=== PATIENT | female | born 1940 | race Caucasian/White ===

== ENCOUNTER → 2018-02-03 | Outpatient (CLI) | payer MEDICARE ==
[~2018-02-03] MED LIST: ASPIR 8181 MG PO; ASTEPRO205.5 MCG/; CALCIUM 600 +1 EAC2 PO; CALCIUM 600 +1 EAC9 PO; COMBIVENT RESPIM4 GM; CRANBERRY TABL1 EACH PO; DOCUSATE SODIU100 MG PO; FENOFIBRATE134 MG PO; FLONASE16 GM; FLOVENT HFA12 G1 INH; GUAIFENESIN400 MG PO; HALOBETASOL PRO15 G1 TOP; LEVOCETIRIZINE D5 MG PO; LIDEX TOP; MAGNESIUM250 M1 PO; MELOXICAM7.5 MG PO; METOPROLOL SUCC50 MG PO; MONTELUKAST SOD10 MG PO; MULTIVITAMINS1 EAC7 PO; NEXIUM40 MG PO; OSTEO BI-FLEX1 EAC2 PO; PRISTIQ ER50 MG PO; PROVENTIL HFA6.7 GM INH; RESTASIS1 EACH; TRIBENZOR 40-11 EAC1 PO; TRIBENZOR 40-51 EAC1 PO; TRILIPIX135 MG PO
--- NOTE | 2018-02-03 14:22 | Diagnostic Imaging Report ---
PROCEDURE:X-RAY ABDOMEN - KUB COMPARISON:KUB dated 04/27/15 INDICATIONS:UTI FINDINGS: There is a non-obstructed bowel-gas pattern. 3 mm calcification overlying left renal inferior pole shadow. Right upper quadrant surgical clips, likely related to cholecystectomy. There are no acute osseous abnormalities. Advanced degenerative changes of the lumbar spine along with minimal scoliosis. Unchanged numerous pelvic phleboliths. The lung bases are clear. CONCLUSION: Questionable 3 mm left renal inferior pole calculus. Nonobstructive bowel gas pattern. Dictated by: Jacky Barber M.D. on 02/03/2018 at 14:27 Electronically approved by: Jacky Barber M.D. on 02/03/2018 at 14:27
--- NOTE | 2018-02-03 14:36 | Diagnostic Imaging Report ---
EXAM: Renal Ultrasound INDICATION: \S\URINARY TRACT INFECTION / RENAL CYST COMPARISON: Renal ultrasound dated 04/27/2015 TECHNIQUE: Transverse and longitudinal images of the kidneys and bladder were obtained. FINDINGS: Right Kidney: Size: 12.1 cm Echogenicity: Normal Parenchymal thickness: Normal Collecting system: No hydronephrosis Stones: None Cyst/Mass: 2.7 x 2.4 x 2.6 cm midpole lesion contains soft tissue component without internal flow on color Doppler. There are multiple right renal cysts, the largest in the inferior pole measuring 2.7 cm Left Kidney: Size: 12.8 cm Echogenicity: Normal Parenchymal thickness: Normal Collecting system: No hydronephrosis Stones: None Cyst/Mass: 6.1 x 4.7 x 5.3 cm inferior pole cyst, previously 5.2 x 4.3 x 6 cm. There is another mid to inferior pole cyst measuring 2.9 x 2 x 2.8 cm cyst. Bladder: Unremarkable. Bilateral ureteral jets were seen. IMPRESSION: Bilateral renal cysts, slightly increased in size when compared to prior ultrasound dated 04/27/2015. 2.7 cm right renal midpole cystic/solid lesion is indeterminate. Recommend further evaluation with renal mass protocol CT or MRI. Signed by: Dr. Jacky Barber MD on 02/03/2018 2:32 PM
== END ==
LOC: US 12:55
PROVIDERS: ATTEND Urology
DX: N39.0 Urinary tract infection, site not specified (principal); N20.0 Calculus of kidney; N28.1 Cyst of kidney, acquired
CPT/HCPCS: 74018; 76770

== ENCOUNTER 2018-07-15 12:34 | Inpatient (IN) | payer MEDICARE, OTHER ==
[~2018-07-15] VITALS: Ht 167.6 cm; Wt 80.3 kg
--- OUTSIDE RECORDS SUMMARY | 2018-07-15 12:37 | XMS REPORT ---
[facility] Address Unknown Phone Unavailable Care Team Providers Care Store Merchandiser Name Role Phone GEOVANNA REECE Unavailable Unavailable Problems This patient has no known problems. Allergies, Adverse Reactions, Alerts This patient has no known allergies or adverse reactions. Medications This patient has no known medications. Results Test Description Test Time Test Comments Text Results Atomic Results Result Comments ABDOMEN-1VIEW (KUB) 2018-02-03 14:27:00 [place] [address] Patient Name: MAINE CENTENO MR #: [id number] : 1940 Age/Sex: 77/F Req #: [id number] Adm Physician: Ordered by: GEOVANNA REECE MD Report #: [id number] Location: US Room/Bed: Procedure: [id number] DX/ABDOMEN-1VIEW (KUB) Exam Date: 02/03/18 Exam Time: 1325 REPORT STATUS: Signed PROCEDURE: X-RAY ABDOMEN - KUB COMPARISON: KUB dated 04/27/15 INDICATIONS: UTI FINDINGS: There is a non-obstructed bowel- gas pattern. 3 mm calcification overlying left renal inferior pole shadow. Right upper quadrant surgical clips, likely related to cholecystectomy. There are no acute osseous abnormalities. Advanced degenerative changes of the lumbar spine along with minimal scoliosis. Unchanged numerous pelvic phleboliths. The lung bases are clear. CONCLUSION: Questionable 3 mm left renal inferior pole calculus. Nonobstructive bowel gas pattern. Dictated by: Jacky Barber M.D. on 02/03/2018 at 14:27 Electronically approved by: Jacky Barber M.D. on 02/03/2018 at 14:27 Dictated By: JACYK BARBER MD 26 Transcribed By: DYLAN on 02/03/181426 COPY TO: GEOVANNA REECE MD RENAL RETROPERITONEAL COMP 2018-02-03 14:25:00 [place] [address] Patient Name: MAINE CENTENO MR #: [id number] : 1940 Age/Sex: 77/F Req #: [id number] Adm Physician: Ordered by: GEOVANNA REECE MD Report #: [id number] Location: US Room/Bed: Procedure: [id number] US/US RENAL RETROPERITONEAL COMP Exam Date: Exam Time: REPORT STATUS: Signed EXAM: Renal Ultrasound INDICATION: COMPARISON: Renal ultrasound dated 04/27/2015 TECHNIQUE: Transverse and longitudinal images of the kidneys and bladder were obtained. FINDINGS: Right Kidney: S ize: 12.1 cm Echogenicity: Normal Parenchymal thickness: Normal Collecting system: No hydronephrosis Stones: None Cyst/Mass: 2.7 x 2.4 x 2.6 cm midpole lesion contains soft tissue component without internal flow on color Doppler. There are multiple right renal cysts, the largest in the inferior pole measuring 2.7 cm Left Kidney: Size: 12.8 cm Echogenicity: Normal Parenchymal thickness: Normal Collecting system: No hydronephrosis Stones: None Cyst/Mass: 6.1 x 4.7 x 5.3 cm inferior pole cyst, previously 5.2 x 4.3 x 6 cm. There is another mid to inferior pole cyst measuring 2.9 x 2 x 2.8 cm cyst. Bladder: Unremarkable. Bilateral ureteral jets were seen. IMPRESSION: Bilateral renal cysts, slightly increased in size when compared to prior ultrasound dated 04/27/2015. 2.7 cm right renal midpole cystic/solid lesion is indeterminate. Recommend further evaluation with renal mass protocol CT or MRI. Signed by: Dr. Jacky Barber MD on 02/03/2018 2:32 PM Dictated By: JACKY BARBER MD 1432 Transcribed By: RADHA on 02/03/18 1432 COPY TO: GEOVANNA REECE MD
--- OUTSIDE RECORDS SUMMARY | 2018-07-15 12:37 | XMS REPORT | Summary of Care ---
Author Author JOSÉ MIGUEL Pickens, MARLENE Organization Unknown Address Unknown Phone Unavailable Care Team Providers Care Concession Stand Attendant Name Role Phone TIFFANIE Pickens, ROBERT Unavailable Unavailable JOSÉ MIGUEL Pickens, MARLENE Unavailable Unavailable YEH D.O., FLORENCE-JOSIE Unavailable Unavailable ASIF N.P., SURI Unavailable Unavailable OBONYANO N.P., KAELA Unavailable Unavailable TIFFANIE BEEBE UT, ROBERT Bernard Unavailable Unavailable EUGENIO Pickens, OPAL Unavailable Unavailable Unavailable Unavailable Functional Status Name Dates Details Functional status health issues are not documented Status: Name Dates Details Cognitive status health issues are not documented Status: Problems Name Dates Details Knee pain (719.46, M25.569) Status: Active Intention tremor (333.1, G25.2) Status: Active Subconjunctival hemorrhage (372.72, H11.30) Status: Active Recurrent UTI (599.0, N39.0) Status: Active Vertigo (780.4, R42) Status: Active Neck ache (723.1, M54.2) Status: Active Anal fissure (565.0, K60.2) Status: Active Perineal lump (625.8, R22.9) Status: Active Perineal hematoma (674.30, S30.23XA) Status: Active Vitamin D deficiency disease (268.9, E55.9) Status: Active terminal operator current use of non-steroidal anti-inflammatories (NSAID) (V58.64, Z79.1) Status: Active History of hyperlipidemia (V12.29, Z86.39) Status: Active Stomatitis (528.00, K12.1) Status: Active Right shoulder tendinitis (726.10, M75.81) Status: Active Acute neck pain (723.1, M54.2) Status: Active Umbilical hernia (553.1, K42.9) Status: Active Lumbar degenerative disc disease (722.52, M51.36) Status: Active Allergic rhinitis (477.9, J30.9) Status: Active History of osteoarthritis (V13.4, Z87.39) Status: Active History of psoriasis (V13.3, Z87.2) Status: Active Elevated transaminase level (790.4, R74.0) Status: Active Fatty liver (571.8, K76.0) Status: Active Depression screening (V79.0, Z13.31) Status: Active Screening for osteoporosis (V82.81, Z13.820) Status: Active Edema (782.3, R60.9) Status: Active Osteopenia (733.90, M85.80) Status: Active Lumbar spondylosis (721.3, M47.816) Status: Active Depression, acute (296.20, F32.9) Status: Active Elderly person living alone (V60.3, Z60.2) Status: Active Asthma (493.90, J45.909) Status: Active Stress (V62.89, F43.9) Status: Active Right foot pain (729.5, M79.671) Status: Active Cramp in lower leg (729.82, R25.2) Status: Active Hemorrhoids, internal (455.0, K64.8) Status: Active GERD without esophagitis (530.81, K21.9) Status: Active Persistent dry cough (786.2, R05) Status: Active Dry eye syndrome (375.15, H04.129) Status: Active Back muscle spasm (724.8, M62.830) Status: Active Back pain (724.5, M54.9) Status: Active 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, M15.9) Status: Active Chronic pain of left knee (719.46, M25.562) Status: Active Chronic right shoulder pain (719.41, M25.511) Status: Active Low back pain (724.2, M54.5) Status: Active Balance problem (781.99, R26.89) Status: Active Right upper quadrant abdominal pain (789.01, R10.11) Status: Active Depression, major, single episode, 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, 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 IBS (irritable bowel syndrome) (564.1, K58.9) Status: Active Medicare annual wellness visit, subsequent (V70.0, Z00.00) Status: Active Advance directive discussed with patient (V65.49, Z71.89) Status: Active Breast cancer screening (V76.10, Z12.31) Status: Active Hypertension (401.9, I10) Status: Active Anxiety and depression (300.00, F41.9) Status: Active At high risk for falls (V15.88, Z91.81) Status: Active Encounter for mini-mental status examination Status: Active Irritable bowel syndrome with both constipation and diarrhea (564.1, K58.2) Status: Active 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 * Start : 05-Oct-2015 Active Fenofibric Acid 135 MG Oral Capsule Delayed Release TAKE ONE CAPSULE BY MOUTH DAILY * Quantity: 90 Refills: 1 ROBERT MORENO M.D. * Start : 25-Jul-2017 Active Dqorqptjpv-Kyivsxxhse-QLZV 40-10-25 MG Oral Tablet TAKE 1 TABLET DAILY * Quantity: 90 Refills: 1 ROBERT MORENO M.D. * Start : 23-Nov-2015 Active Metoprolol Succinate ER 50 MG Oral Tablet Extended Release 24 Hour TAKE 1 TABLET BY MOUTH EVERY DAY * Quantity: 90 Refills: 1 ROBERT MROENO M.D. * Start : 22-Apr-2018 Active Restasis 0.05 % Ophthalmic Emulsion INSTILL 1 DROP IN EACH EYE TWICE DAILY. * Refills: 0 R.N. Active Levocetirizine Dihydrochloride 5 MG Oral Tablet TAKE 1 TABLET DAILY. * Quantity: 1 Refills: 1 R.N. Active Sdiso-Vy-Lfnh TABS TAKE 1 TABLET DAILY * Refills: 0 R.N. Active DiphenhydrAMINE HCl - 25 MG Oral Tablet TAKE 1-2 TABLETS AT NIGHT NEEDED * Refills: 0 R.N. Active Icy Hot 5 % PADS APPLY DIRECTED. * Refills: 0 R.N. * Start : 01-Feb-2015 Active Docusate Sodium 100 MG Oral Capsule TAKE 1 CAPSULE DAILY PRN * Refills: 0 R.N. * Start : 01-Feb-2015 Active Multiple Vitamins Oral Tablet TAKE 1 TABLET DAILY. * Refills: 0 R.N. * Start : 01-Feb-2015 Active Acetaminophen ER 650 MG Oral Tablet Extended Release TAKE 1 TABLET 3-4 TIMES DAILY. * Refills: 0 R.N. * Start : 01-Feb-2015 Active Vitamin B Complex Oral Tablet TAKE 1 TABLET DAILY. * Refills: 0 R.N. * Start : 01-Feb-2015 Active Calcium 600 + D 600-200 MG-UNIT Oral Tablet TAKE 1 TABLET DAILY. * Refills: 0 R.N. * Start : 01-Feb-2015 Active Celecoxib 100 MG Oral Capsule TAKE 1 CAPSULE TWICE DAILY PRN joint pain * Quantity: 90 Refills: 1 MARLENE LAYTON M.D. * Start : 01-Feb-2015 Active Halobetasol Propionate 0.05 % External Ointment APPLY AND GENTLY MASSAGE INTO AFFECTED AREA(S) TWICE DAILY. * Refills: 0 R.N. Active Clobetasol Propionate 0.05 % External Solution APPLY AND GENTLY MASSAGE INTO AFFECTED AREA(S) TWICE DAILY. * Refills: 0 R.N. Active Rollator MISC Walker with 4 wheels and seat attachment-use as directed * Quantity: 1 Refills: 0 YEH D.O.IZABELA * Start : 08-Mar-2015 Active Rollator MISC USE DIRECTED. * Quantity: 1 Refills: 0 YEH D.O., IZABELA * Start : 08-Mar-2015 Active ProAir HFA 108 (90 Base) MCG/ACT Inhalation Aerosol Solution INHALE 2 PUFFS EVERY 4 HOURS * Quantity: 3 Refills: 1 ROBERT MORENO M.D. 8.5 GM Inhaler Loratadine TABS TAKE 1 TABLET DAILY NEEDED. * Refills: 0 R.N. Active Montelukast Sodium 10 MG Oral Tablet TAKE 1 TABLET DAILY * Refills: 0 R.N. Active Nitrofurantoin Monohyd Macro 100 MG Oral Capsule TAKE 1 CAPSULE DAILY * Refills: 0 R.N. Active Acidophilus CAPS TAKE 1 CAPSULE DAILY * Refills: 0 R.N. Active Nasonex 50 MCG/ACT Nasal Suspension USE 1 TO 2 SPRAYS IN EACH NOSTRIL ONCE A DAY * Quantity: 17 Refills: 1 R.N. Active Super B Complex Maxi TABS TAKE 1 TABLET DAILY. * Refills: 0 R.N. Active Chlorthalidone 25 MG Oral Tablet take 1/2 tablet by mouth daily * Quantity: 45 Refills: 1 ROBERT MORENO M.D. * Start : 16-Jul-2016 Active Potassium Chloride ER 10 MEQ Oral Capsule Extended Release TAKE 1 CAPSULE DAILY PRN * Quantity: 90 Refills: 1 ROBERT MORENO M.D. * Start : 10-Aug-2017 Active Cholestyramine 4 GM Oral Packet MIX 1 PACKET WITH 2 TO 6 OUNCES OF NONCARBONATED BEVERAGE AND DRINK ONCE DAILY * Quantity: 60 Refills: 1 ASIF N.P. SURI Active Enbrel SureClick 50 MG/ML Subcutaneous Solution Auto-injector Inject 50mg SQ once a week * Quantity: 4 Refills: 7 MARLENE LAYTON M.D. * Start : 03-Dec-2017 Active 0.98 ML Syringe Combivent Respimat 20-100 MCG/ACT Inhalation Aerosol Solution INHALE 1 PUFF 4 TIMES DAILY (MAXIMUM OF 6 PUFFS IN 24 HOURS) * Refills: 0 R.N. * Start : 31-Dec-2017 Active 4 GM Inhaler Mometasone Furoate 50 MCG/ACT Nasal Suspension USE 2 SPRAYS IN EACH NOSTRIL ONCE DAILY * Refills: 0 R.N. * Start : 31-Dec-2017 Active 17 GM Inhaler Probiotic Oral Capsule USE DIRECTED. * Refills: 0 R.N. * Start : 31-Dec-2017 Active Vitamin D3 2000 UNIT Oral Capsule TAKE 1 CAPSULE DAILY * Refills: 0 R.N. * Start : 31-Dec-2017 Active Choline Fenofibrate 135 MG Oral Capsule Delayed Release TAKE ONE CAPSULE BY MOUTH EVERY DAY * Quantity: 30 Refills: 0 YEH D.O., IZABELA * Start : 24-Jan-2018 Active Cholestyramine 4 GM Oral Packet TAKE 1 PACKET DAILY * Quantity: 30 Refills: 6 OBONYANO N.P., KAELA * Start : 05-Mar-2018 Active Allergies and Adverse Reactions Name Dates Details Ampicillin CAPS (Allergy) Status: Active baclofen (Allergy) Status: Active Cephalexin Monohydrate TABS (Allergy) Status: Active clindamycin (Allergy) Status: Active Clindamycin HCl CAPS (Allergy) Reaction: Diarrhea Status: Active Crestor TABS (Allergy) Status: Active Darvon CAPS (Allergy) Status: Active Deconsal DM CHEW (Allergy) Status: Active Erythromycin Derivatives (Allergy) Status: Active Floxin (Allergy) Status: Active gabapentin (Allergy) Status: Active Iodinated Contrast Media (Allergy) Status: Active Meclizine HCl TABS (Allergy) Status: Active Omnicef (Allergy) Status: Active Pseudoephedrine HCl TABS (Allergy) Status: Active Robaxin (Allergy) Status: Active Shellfish-derived Products (Allergy) Reaction: Vomiting, Diarrhea Status: Active Soma Compound TABS (Allergy) Status: Active Sulfa Drugs (Allergy) Status: Active Tetracyclines (Allergy) Status: Active Past Medical History Name Dates Details History of Anxiety (300.00, F41.9) Status: Resolved History of At high risk for falls (V15.88, Z91.81) Status: Resolved History of back problems Status: Resolved History of diverticulitis of colon (V12.79, Z87.19) Status: Resolved History of Environmental and seasonal allergies (477.8, J30.89) Status: Resolved History of herpes zoster (V12.09, Z86.19) Status: Resolved History of Seasonal allergies (477.9, J30.2) Status: Resolved History of upper respiratory infection (V12.09, Z87.09) Status: Resolved Procedures Procedure Dates Details History of Laminectomy Lumbar Completed History of Tonsillectomy Completed History of Appendectomy Completed History of Hysterectomy Completed History of Lumbar Vertebral Fusion Completed History of Foot Surgery Completed History of Oophorectomy Completed Immunization Name Dates Details Zoster (Zostavax) Comments: Approx 2012 Pneumococcal polysaccharide vaccine, 23 valent Comments: Approx 2012 Influenza on: Mar-2014 Fluzone Quadrivalent 0.5 ML Intramuscular Suspension Lot #: [id number] on: 25-Apr-2015 Prevnar 13 Intramuscular Suspension Lot #: [id number] on: 25-Apr-2015 Fluzone High-Dose SUSP Lot #: [id number] on: 13-Apr-2016 Fluzone High-Dose 0.5 ML Intramuscular Suspension Prefilled Syringe Lot #: [id number] on: 13-May-2017 PPD, tuberculin skin test; purified protein derivative solution, intradermal on: 27-Nov-2017 Family History Name Dates Details Family history of Diabetes (250.00, E11.9) Status: Active Family history of Ovarian cancer (183.0, C56.9) Status: Active Family history of Alzheimer's disease (V17.2, Z82.0) Status: Active Name Dates Details Family history of Alzheimer's disease (V17.2, Z82.0) Status: Active Social History Name Dates Details - Status: Name Dates Details Never smoker Vital Signs Date Test Result Details [id number]-[id number]:56 BP Systolic 147 mm[Hg] Status: Comments: Location: LUE; Position: Sitting BP Diastolic 71 mm[Hg] Status: Comments: Location: LUE; Position: Sitting Weight 186 lb Status: Body Mass Index Calculated 30.02 kg/m2 Status: Body Surface Area Calculated 1.94 m2 Status: Temperature 98.6 f Status: Comments: Method: Oral Heart Rate 71 /min Status: Respiration Rate 17 /min Status: Results Date Description Value Details [id number] [[facility]] CMP W/EGFR GLUCOSE 107 mg/dl (Normal) Range: 65-139 Comments: Non-fasting reference interval UREA NITROGEN (BUN) 19 mg/dl (Normal) Range: 7-25 CREATININE 0.84 mg/dl (Normal) Range: 0.60-0.93 Comments: For patients >49 years of age, the reference limitfor Creatinine is approximately 13% higher for peopleidentified as -Norwegian. eGFR NON- 67 {ML/MIN/1.7} (Normal) Range: > OR=60 eGFR 77 {ML/MIN/1.7} (Normal) Range: > OR=60 BUN/CREATININE RATIO NOT APPLICABLE {CALC} Range: 6-22 SODIUM 141 mmol/L (Normal) Range: 135-146 POTASSIUM 3.7 mmol/L (Normal) Range: 3.5-5.3 CHLORIDE 104 mmol/L (Normal) Range: 98-110 CARBON DIOXIDE 29 mmol/L (Normal) Range: 20-32 CALCIUM 9.3 mg/dl (Normal) Range: 8.6-10.4 PROTEIN, TOTAL 6.5 g/dl (Normal) Range: 6.1-8.1 ALBUMIN 4.1 g/dl (Normal) Range: 3.6-5.1 GLOBULIN 2.4 {G/DL__CALC} (Normal) Range: 1.9-3.7 ALBUMIN/GLOBULIN RATIO 1.7 {CALC} (Normal) Range: 1.0-2.5 BILIRUBIN, TOTAL 0.4 mg/dl (Normal) Range: 0.2-1.2 ALKALINE PHSPHATASE 62 u/l (Normal) Range: 33-130 AST 22 u/l (Normal) Range: 10-35 ALT 21 u/l (Normal) Range: 6-29 [id number]-[id number]:41 [[facility]] SED RATE BY MODIFIED WESTERGREN SED RATE BY MODIFIED WESTERGREN 2 mm/h (Normal) Range: < OR=30 18-[id number]:41 [[facility], [facility]] CBC (INCLUDES DIFF/PLT) WHITE BLOOD CELL COUNT 5.6 {Thousand/u} (Normal) Range: 3.8-10.8 RED BLOOD CELL COUNT 4.65 {Million/uL} (Normal) Range: 3.80-5.10 HEMAGLOBIN 13.8 g/dl (Normal) Range: 11.7-15.5 HEMATOCRIT 41.0 % (Normal) Range: 35.0-45.0 MCV 88.2 fL (Normal) Range: 80.0-100.0 MCH 29.7 pg (Normal) Range: 27.0-33.0 MCHC 33.7 g/dl (Normal) Range: 32.0-36.0 RDW 12.6 % (Normal) Range: 11.0-15.0 PLATELET COUNT 233 {Thousand/u} (Normal) Range: 140-400 MPV 10.9 fL (Normal) Range: 7.5-12.5 ABSOLUTE NEUTROPHILS 2722 {cells/uL} (Normal) Range: 6821-8878 ABSOLUTE LYMPHOCYTES 2106 {cells/uL} (Normal) Range: 850-3900 ABSOLUTE MONOCYTES 521 {cells/uL} (Normal) Range: 200-950 ABSOLUTE EOSINOPHILS 190 {cells/uL} (Normal) Range: 15-500 ABSOLUTE BASOPHILS 62 {cells/uL} (Normal) Range: 0-200 NEUTROPHILS 48.6 % (Normal) LYMPHOCYTES 37.6 % (Normal) MONOCYTES 9.3 % (Normal) EOSINOPHILS 3.4 % (Normal) BASOPHILS 1.1 % (Normal) [id number] [[facility]] C-REACTIVE PROTEIN Comments: REPORT COMMENT:FASTING:NO C-REACTIVE PROTEIN 0.5 mg/L (Normal) Range: <8.0 Plan of Care Name Dates Details Planned Observations Planned Goals not documented Planned Encounters Appointment; LAUREANO MEZA M.D. On: 01-Sep-2018 10:45 Appointment; MARLENE LAYTON M.D. On: 23-Dec-2018 14:00 Interventions Provided Medication Changes* Celecoxib 100 MG Oral Capsule - Renew Discussion/Summary* Dear Ms. CENTENO, * The following studies were unremarkable. I've refilled your meds. * Sincerely, * Dr. Layton Instructions Name Dates Details Instructions not documented Encounters Appointment; MARLENE LAYTON M.D. Encounter Diagnosis: Problem not documented On: 27-Jun-2016 10:30 Appointment; SAUD NEVILLE M.D. Encounter Diagnosis: Problem not documented On: 07-Jul-2016 11:45 Appointment; IZABELA ARVIZU D.O. Encounter Diagnosis: Problem not documented On: 16-Jul-2016 12:30 Appointment; MARLENE LAYTON M.D. Encounter Diagnosis: Problem not documented On: 25-Sep-2016 10:30 Appointment; SRUI ASIF NP Encounter Diagnosis: Problem not documented On: 03-Dec-2016 14:00 Appointment; IZABELA ARVIZU D.O. Encounter Diagnosis: Problem not documented On: 03-Jan-2017 10:30 Appointment; MARLENE LAYTON M.D. Encounter Diagnosis: Problem not documented On: 11-Jan-2017 11:30 Appointment; SURI ASIF NP Encounter Diagnosis: Problem not documented On: 31-Jan-2017 13:30 Appointment; SURI ASIF NP Encounter Diagnosis: Problem not documented On: 15-Feb-2017 14:00 Appointment; MARLENE LAYTON M.D. Encounter Diagnosis: Problem not documented On: 13-May-2017 10:30 Appointment; ROBERT MORENO M.D. Encounter Diagnosis: Problem not documented On: 18-May-2017 12:00 Appointment; ROBERT MORENO M.D. Encounter Diagnosis: Problem not documented On: 10-Aug-2017 11:15 Appointment; ROBERT MORENO M.D. Encounter Diagnosis: Problem not documented On: 19-Aug-2017 11:00 Appointment; ROBERT MORENO M.D. Encounter Diagnosis: Problem not documented On: 27-Nov-2017 12:30 Appointment; MARLENE LAYTON M.D. Encounter Diagnosis: Problem not documented On: 27-Nov-2017 14:00 Appointment; ROBERT MORENO M.D. Encounter Diagnosis: Problem not documented On: 11-Dec-2017 10:00 Appointment; LAUREANO MEZA M.D. Encounter Diagnosis: Problem not documented On: 31-Dec-2017 13:00 Appointment; LETTY BANKS LCSW Encounter Diagnosis: Problem not documented On: 08-Jan-2018 13:00 Appointment; LAUREANO MEZA M.D. Encounter Diagnosis: Problem not documented On: 30-Jan-2018 15:45 Appointment; LETTY BANKS LCSW Encounter Diagnosis: Problem not documented On: 04-Feb-2018 15:00 Appointment; SURI ASIF NP Encounter Diagnosis: Problem not documented On: 13-Feb-2018 18:45 Appointment; ROBERT MORENO M.D. Encounter Diagnosis: Problem not documented On: 25-Feb-2018 10:45 Appointment; LAUREANO MEZA M.D. Encounter Diagnosis: Problem not documented On: 05-Mar-2018 10:15 Appointment; MARLENE LAYTON M.D. Encounter Diagnosis: Problem not documented On: 24-Jun-2018 13:00
--- NOTE | 2018-07-15 13:15 | NUR ---
ER Doc at bedside currently.
--- NOTE | 2018-07-15 13:15 | NUR ---
Pt reports "I haven't taken any of my usual home medications today, including my blood pressure medications."
[2018-07-15 13:44] LABS: BASOPHILS # (AUTO) 0.1 (0.0-0.1); BASOPHILS % 0.6 % (0.0-1.0); EOSINOPHILS # (AUTO) 0.1 (0.0-0.4); EOSINOPHILS % 0.8 % (0.0-6.0); HEMATOCRIT 42.9 % (34.2-44.1); HEMOGLOBIN 14.1 g/dL (12.0-16.0); LYMPHOCYTES # (AUTO) 1.4 (1.0-3.2); LYMPHOCYTES % 15.7 % (18.0-39.1); MEAN CORPUSCULAR HEMOGLOBIN 30.1 pg (28-32); MEAN CORPUSCULAR HGB CONC 32.9 g/dL (31-35); MEAN CORPUSCULAR VOLUME 91.5 fL (81-99); MONOCYTES # (AUTO) 0.6 (0.2-0.8); MONOCYTES % 7.4 % (4.4-11.3); NEUTROPHILS # (AUTO) 6.5 (2.1-6.9); NEUTROPHILS % 74.8 % (38.7-80.0); PLATELET COUNT 169 x10e3/uL (140-360); RED BLOOD COUNT 4.69 x10e6/uL (3.6-5.1); RED CELL DISTRIBUTION WIDTH 13.1 % (11.7-14.4)
[2018-07-15 13:48] LABS: INR 0.96; PARTIAL THROMBOPLASTIN TIME 22.8 seconds (23.8-35.5); PROTHROMBIN TIME 13.7 seconds (11.9-14.5)
[2018-07-15 13:56] LABS: ALANINE AMINOTRANSFERASE 33 IU/L (0-55); ALBUMIN 3.8 g/dL (3.5-5.0); ALBUMIN/GLOBULIN RATIO 1.2 (0.8-2.0); ALKALINE PHOSPHATASE 54 IU/L (40-150); ANION GAP 13.7 mmol/L (8-16); BLOOD UREA NITROGEN 21 mg/dL (7-26); BUN/CREATININE RATIO 24 (6-25); CARBON DIOXIDE 26 mmol/L (22-29); CHLORIDE 106 mmol/L (98-107); CREATINE KINASE 63 IU/L (29-168); CREATININE, SERUM 0.87 mg/dL (0.57-1.11); EST GLOMERULAR FILTRATION RATE > 60 ML/MIN (60-); GLUCOSE 120 mg/dL (74-118); POTASSIUM 3.7 mmol/L (3.5-5.1); SODIUM 142 mmol/L (136-145)
--- NOTE | 2018-07-15 14:47 | Diagnostic Imaging Report ---
Examination: Single AP view of the chest. COMPARISON: None. INDICATION: Shortness of breath DISCUSSION: The lungs are well-inflated. No focal airspace consolidation, pleural effusion, or pneumothorax. Probable calcified granuloma in the right upper lung superimposed over the posterior fifth rib. Cardiomediastinal contour is notable for mild atherosclerotic calcification of the thoracic aorta. No overt pulmonary edema. No acute osseous abnormality. IMPRESSION: 1. No acute cardiopulmonary abnormalities. 2. Probable calcified granuloma in the right upper lung. In the absence of prior chest radiographs for comparison purposes, a short-term follow-up chest radiograph (1-2 months) is suggested to document stability. Signed by: Dr. Jluis Bucio M.D. on 07/15/2018 2:44 PM
[2018-07-15] MEDS ORDERED: METHYLPREDNISOLONE SOD SUCC 125 MG/2ML VIAL IV ONE (15:30)
[2018-07-15] MEDS ORDERED: ENOXAPARIN SODIUM INJ 100 MG/ML SYR SC SCH (15:30)
[2018-07-15] MEDS ORDERED: DIPHENHYDRAMINE HCL INJ 50 MG/ML VIAL IV ONE (15:30)
--- NOTE | 2018-07-15 17:45 | Diagnostic Imaging Report ---
CT chest pulmonary embolism protocol CPT code: 99327 INDICATION: Shortness of breath TECHNIQUE: Thin collimation axial images obtained through the level of the pulmonary arteries with additional imaging through the chest following the uneventful administration of 100 cc of low osmolar, nonionic intravenous contrast. Images reconstructed into coronal and sagittal MIPs for complete evaluation of the tortuous and overlapping pulmonary vascular structures and to reduce patient radiation dose. RADIATION DOSE: Total DLP: 630.8 mGy*cm Estimated effective dose: (DLP x 0.015 x size factor) mSv CTDIvol has been reviewed. It is below the limits set by the Radiation Protocol Committee (RPC). Dose reduction techniques used: Automated exposure control, adjustment of the mAs and/or kVp according to patient size, standardized low-dose protocol, and/or iterative reconstruction technique. COMPARISON: Chest x-ray 1336 hours. FINDINGS: Pulmonary artery: Main pulmonary artery measures 4.1 cm in diameter. There are filling defects in the upper, middle and lower lobe branches of the right and left pulmonary arteries. No filling defects in the main pulmonary artery. Aorta: The thoracic aorta is not aneurysmal. No evidence for dissection. Lymph nodes: No enlarged axillary or supraclavicular lymph nodes . Mediastinal lymph nodes measure up to 10 mm. Left hilar lymphoid tissue is prominent but indistinct. Thyroid: Normal in size without mass in the visualized parenchyma.. Mediastinum: There is mild tracheobronchomalacia. The heart is mildly enlarged. No pericardial effusion. The esophagus is collapsed. Lungs: Diffusely hyperinflated with peripheral linear and groundglass opacities. A 2 mm calcified granuloma is in the lateral right upper lobe. There is passive atelectasis of the posterior basal segment of the right lower lobe secondary to exophytic osteophyte. No large pulmonary infarcts. Pleura: No pleural effusion or pleural based mass.. Abdomen: Decreased attenuation of the liver consistent with steatosis. No hepatic mass. Gallbladder is absent. There is mild fatty atrophy of the pancreas. Visualized portions of the spleen, adrenal glands, and left kidney are unremarkable. Bones: Mild to moderate degenerative changes throughout the spine without compression deformity. A sclerotic, nondestructive lesion in T3 is suggestive of a bone island. Soft tissues: Unremarkable. IMPRESSION: 1. Bilateral pulmonary emboli. No large pulmonary infarcts. Enlarged main pulmonary artery consistent with pulmonary artery hypertension. 2. COPD and tracheobronchomalacia. 3. Steatosis. Signed by: Dr. Elisabeth Meehan MD on 07/15/2018 5:41 PM
[2018-07-15] MEDS ORDERED: PEPPERMINT OIL PO (17:59)
[2018-07-15] MEDS ORDERED: ATENOLOL50 MG PO (18:03)
--- NOTE | 2018-07-15 18:06 | NUR ---
Pt resting comfortably in bed watching tv, appearing to be in no disress. Pt denies pain currently. Pt denies SOB, stating "right now, I don't have shortness of breath when I am lying still."
--- NOTE | 2018-07-15 18:13 | NUR ---
ER doc at bedside to update pt on condition.
[2018-07-15] MEDS ORDERED: HEPARIN 25,000 UNIT/D5W 250ML 250 ML IV SCH (18:45)
--- NOTE | 2018-07-15 19:09 | NUR ---
received bedside report from ANN MARIE Joseph day shift nurse.
[2018-07-15] MEDS ORDERED: ONDANSETRON HCL INJ 2 MG/ML VIAL IV PRN (19:15)
[2018-07-15] MEDS: FAMOTIDINE 20 MG TAB PO SCH (19:22)
[2018-07-15] MEDS: SODIUM CHLORIDE 0.9% 1000ML 1,000 ML IV SCH (19:22)
[2018-07-15] MEDS ORDERED: SODIUM CHLORIDE 0.9% 50ML 50 ML ONE (19:46)
[2018-07-15] MEDS ORDERED: IOPAMIDOL 370 MG/ML 200 ML INFUS..BTL INJ ONE (19:46)
--- OUTSIDE RECORDS SUMMARY | 2018-07-15 19:51 | XMS REPORT | Summary of Care ---
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 * Start : 25-Jul-2017 Active Lsbvldddlb-Ybvfhufaqq-KAYM 40-10-25 MG Oral Tablet TAKE 1 TABLET DAILY * Quantity: 90 Refills: 1 ROBERT MORENO M.D. * Start : 23-Nov-2015 Active Metoprolol Succinate ER 50 MG Oral Tablet Extended Release 24 Hour TAKE 1 TABLET BY MOUTH EVERY DAY * Quantity: 90 Refills: 1 ROBERT MORENO M.D. * Start : 22-Apr-2018 Active Restasis 0.05 % Ophthalmic Emulsion INSTILL 1 DROP IN EACH EYE TWICE DAILY. * Refills: 0 Active Levocetirizine Dihydrochloride 5 MG Oral Tablet TAKE 1 TABLET DAILY. * Quantity: 1 Refills: 1 Active Xgwil-Tr-Mohl TABS TAKE 1 TABLET DAILY * Refills: 0 Active DiphenhydrAMINE HCl - 25 MG Oral Tablet TAKE 1-2 TABLETS AT NIGHT NEEDED * Refills: 0 Active Icy Hot 5 % PADS APPLY DIRECTED. * Refills: 0 * Start : 01-Feb-2015 Active Docusate Sodium 100 MG Oral Capsule TAKE 1 CAPSULE DAILY PRN * Refills: 0 * Start : 01-Feb-2015 Active Multiple Vitamins Oral Tablet TAKE 1 TABLET DAILY. * Refills: 0 * Start : 01-Feb-2015 Active Acetaminophen ER 650 MG Oral Tablet Extended Release TAKE 1 TABLET 3-4 TIMES DAILY. * Refills: 0 * Start : 01-Feb-2015 Active Vitamin B Complex Oral Tablet TAKE 1 TABLET DAILY. * Refills: 0 * Start : 01-Feb-2015 Active Calcium 600 + D 600-200 MG-UNIT Oral Tablet TAKE 1 TABLET DAILY. * Refills: 0 * Start : 01-Feb-2015 Active Celecoxib 100 MG Oral Capsule TAKE 1 CAPSULE TWICE DAILY PRN joint pain * Quantity: 90 Refills: 1 JOSE VALDEZ M.D.MERCYClement * Start : 01-Feb-2015 Active Halobetasol Propionate 0.05 % External Ointment APPLY AND GENTLY MASSAGE INTO AFFECTED AREA(S) TWICE DAILY. * Refills: 0 Active Clobetasol Propionate 0.05 % External Solution APPLY AND GENTLY MASSAGE INTO AFFECTED AREA(S) TWICE DAILY. * Refills: 0 Active Rollator MISC Walker with 4 wheels and seat attachment-use as directed * Quantity: 1 Refills: 0 YEH D.O., IZABELA * Start : 08-Mar-2015 Active Rollator MISC USE DIRECTED. * Quantity: 1 Refills: 0 YEH D.O., IZABELA * Start : 08-Mar-2015 Active ProAir HFA 108 (90 Base) MCG/ACT Inhalation Aerosol Solution INHALE 2 PUFFS EVERY 4 HOURS * Quantity: 3 Refills: 1 ROBERT MORENO M.D. Active 8.5 GM Inhaler Loratadine TABS TAKE 1 TABLET DAILY NEEDED. * Refills: 0 Active Montelukast Sodium 10 MG Oral Tablet TAKE 1 TABLET DAILY * Refills: 0 Active Nitrofurantoin Monohyd Macro 100 MG Oral Capsule TAKE 1 CAPSULE DAILY * Refills: 0 Active Acidophilus CAPS TAKE 1 CAPSULE DAILY * Refills: 0 Active Nasonex 50 MCG/ACT Nasal Suspension USE 1 TO 2 SPRAYS IN EACH NOSTRIL ONCE A DAY * Quantity: 17 Refills: 1 Active Super B Complex Maxi TABS TAKE 1 TABLET DAILY. * Refills: 0 Active Chlorthalidone 25 MG Oral Tablet take [...] DAILY * Quantity: 60 Refills: 1 ASIF N.P., SURI Active Enbrel SureClick 50 MG/ML Subcutaneous Solution Auto-injector Inject 50mg SQ once a week * Quantity: 4 Refills: 7 MARLENE VALDEZ M.D. * Start : 03-Dec-2017 Active 0.98 ML Syringe Combivent Respimat 20-100 MCG/ACT Inhalation Aerosol Solution INHALE 1 PUFF 4 TIMES DAILY (MAXIMUM OF 6 PUFFS IN 24 HOURS) * Refills: 0 * Start : 31-Dec-2017 Active 4 GM Inhaler Mometasone Furoate 50 MCG/ACT Nasal Suspension USE 2 SPRAYS IN EACH NOSTRIL ONCE DAILY * Refills: 0 * Start : 31-Dec-2017 Active 17 GM Inhaler Probiotic Oral Capsule USE DIRECTED. * Refills: 0 * Start : 31-Dec-2017 Active Vitamin D3 2000 UNIT Oral Capsule TAKE 1 CAPSULE DAILY * Refills: 0 * Start : 31-Dec-2017 Active Choline Fenofibrate 135 MG Oral Capsule Delayed Release TAKE ONE CAPSULE BY MOUTH EVERY DAY * Quantity: 30 Refills: 0 YEH D.O.IZABELA * Start : 24-Jan-2018 Active Cholestyramine 4 [...] Quadrivalent 0.5 ML Intramuscular Suspension Lot #: [id number] on: 25-Apr-2015 Prevnar 13 Intramuscular Suspension Lot #: [id number] on: 25-Apr-2015 Fluzone High-Dose SUSP Lot #: [id number] on: 13-Apr-2016 Fluzone High-Dose 0.5 ML Intramuscular Suspension Prefilled Syringe Lot #: [id number] on: 13-May-2017 PPD, tuberculin skin test; purified [...] smoker Vital Signs Date Test Result Details [id number] BP Systolic 147 mm[Hg] Status: Comments: Location: LUE; Position: Sitting BP Diastolic 71 mm[Hg] Status: Comments: Location: LUE; Position: Sitting Weight 186 lb Status: Body Mass Index Calculated 30.02 kg/m2 Status: Body Surface Area Calculated 1.94 m2 Status: Temperature 98.6 f Status: Comments: Method: Oral Heart Rate 71 /min Status: Respiration Rate 17 /min Status: Results Date Description Value Details [id number] [QL] CMP W/EGFR GLUCOSE 107 mg/dl (Normal) Range: 65-139 Comments: Non-fasting reference interval UREA NITROGEN (BUN) 19 mg/dl (Normal) Range: 7-25 CREATININE 0.84 mg/dl (Normal) Range: 0.60-0.93 Comments: For patients >49 years of age, the reference limitfor Creatinine is approximately 13% higher for peopleidentified as -Marshallese. eGFR NON- 67 {ML/MIN/1.7} (Normal) Range: > [...] 10-35 ALT 21 u/l (Normal) Range: 6-29 [id number] [QL] SED RATE BY MODIFIED WESTERGREN SED RATE BY MODIFIED WESTERGREN 2 mm/h (Normal) Range: < OR=30 [id number] [[facility]] CBC (INCLUDES DIFF/PLT) WHITE BLOOD CELL COUNT [...] 7.5-12.5 ABSOLUTE NEUTROPHILS 2722 {cells/uL} (Normal) Range: 7877-3407 ABSOLUTE LYMPHOCYTES 2106 {cells/uL} (Normal) Range: 850-3900 ABSOLUTE MONOCYTES 521 {cells/uL} (Normal) Range: 200-950 ABSOLUTE EOSINOPHILS 190 {cells/uL} (Normal) Range: 15-500 ABSOLUTE BASOPHILS 62 {cells/uL} (Normal) Range: 0-200 NEUTROPHILS 48.6 % (Normal) LYMPHOCYTES 37.6 % (Normal) MONOCYTES 9.3 % (Normal) EOSINOPHILS 3.4 % (Normal) BASOPHILS 1.1 % (Normal) [id number] [[facility]] C-REACTIVE PROTEIN Comments: REPORT COMMENT:FASTING:NO C-REACTIVE PROTEIN 0.5 mg/L (Normal) Range: <8.0 Plan of Care Name Dates Details Planned Observations Planned Goals not documented Planned Encounters Appointment; LAUREANO MEZA M.D. On: 01-Sep-2018 10:45 Appointment; MARLENE VALDEZ M.D. On: 23-Dec-2018 14:00 Instructions Name Dates Details Instructions not documented Encounters Appointment; IZABELA ARVIZU D.O. Encounter Diagnosis: Problem not documented On: 16-Jul-2016 12:30 Appointment; MARLENE VALDEZ M.D. Encounter Diagnosis: Problem not documented On: 25-Sep-2016 10:30 Appointment; SURI ASIF NP Encounter Diagnosis: Problem not documented On: 03-Dec-2016 14:00 Appointment; IZABELA ARVIZU D.O. Encounter Diagnosis: Problem not documented On: 03-Jan-2017 10:30 Appointment; MARLENE VALDEZ M.D. Encounter Diagnosis: Problem not documented On: 11-Jan-2017 11:30 Appointment; SURI ASIF NP Encounter Diagnosis: Problem not documented On: 31-Jan-2017 13:30 Appointment; SURI ASIF NP Encounter Diagnosis: Problem not documented On: 15-Feb-2017 14:00 Appointment; MARLENE VALDEZ M.D. Encounter Diagnosis: Problem not documented On: 13-May-2017 10:30 Appointment; ROBERT MORENO M.D. Encounter Diagnosis: Problem not documented On: 18-May-2017 12:00 Appointment; ROBERT MORENO M.D. Encounter Diagnosis: Problem not documented On: 10-Aug-2017 11:15 Appointment; ROBERT MORENO M.D. Encounter Diagnosis: Problem not documented On: 19-Aug-2017 11:00 Appointment; ROBERT MORENO M.D. Encounter Diagnosis: Problem not documented On: 27-Nov-2017 12:30 Appointment; MARLENE VALDEZ M.D. Encounter Diagnosis: Problem not documented On: [...] not documented On: 05-Mar-2018 10:15 Appointment; MARLENE VALDEZ M.D. Encounter Diagnosis: Problem not documented On: 24-Jun-2018 13:00
[2018-07-15 20:55] VITALS: BP 157/71
--- NOTE | 2018-07-15 21:21 | NUR ---
Heparin gtt started per md orders with Kym Grimaldo RN. Refer to MD paper order in pts paper chart.
[2018-07-15 22:00] VITALS: BP 151/69
[2018-07-15] MEDS: HEPARIN 25,000 UNIT/D5W 250ML 250 ML IV SCH (22:02)
[2018-07-15 23:00] VITALS: BP 137/65
[2018-07-16] VITALS (21 sets, daily range): BP systolic 124–159; BP diastolic 53–101
[2018-07-16] MEDS ORDERED: HEPARIN 25,000 UNIT/D5W 250ML 250 ML IV SCH (04:00)
--- NOTE | 2018-07-16 04:25 | NUR ---
Heparin protocol for PTT 74.9: Therapeutic. Recheck PTT in 6 hours. If continues to be therapeutic, change PTT to daily.
[2018-07-16 04:52] LABS: BASOPHILS % 0.3 % (0.0-1.0); HEMATOCRIT 38.2 % (34.2-44.1); HEMOGLOBIN 12.7 g/dL (12.0-16.0); LYMPHOCYTES # (AUTO) 2.1 (1.0-3.2); LYMPHOCYTES % 19.5 % (18.0-39.1); MEAN CORPUSCULAR HEMOGLOBIN 30.3 pg (28-32); MEAN CORPUSCULAR HGB CONC 33.2 g/dL (31-35); MEAN CORPUSCULAR VOLUME 91.2 fL (81-99); MONOCYTES # (AUTO) 0.9 (0.2-0.8); MONOCYTES % 7.7 % (4.4-11.3); NEUTROPHILS # (AUTO) 7.9 (2.1-6.9); NEUTROPHILS % 71.6 % (38.7-80.0); PLATELET COUNT 168 x10e3/uL (140-360); RED BLOOD COUNT 4.19 x10e6/uL (3.6-5.1); RED CELL DISTRIBUTION WIDTH 13.1 % (11.7-14.4)
[2018-07-16] MEDS: SODIUM CHLORIDE 0.9% 1000ML 1,000 ML IV SCH ×2 (05:03→15:15)
[2018-07-16 05:31] LABS: CREATINE KINASE MB 2.7 ng/mL (0-5.0)
[2018-07-16 06:02] LABS: ANION GAP 15.4 mmol/L (8-16); BLOOD UREA NITROGEN 18 mg/dL (7-26); BUN/CREATININE RATIO 22 (6-25); CALCIUM 9.2 mg/dL (8.4-10.2); CARBON DIOXIDE 21 mmol/L (22-29); CHLORIDE 109 mmol/L (98-107); CREATININE, SERUM 0.82 mg/dL (0.57-1.11); EST GLOMERULAR FILTRATION RATE > 60 ML/MIN (60-); GLUCOSE 125 mg/dL (74-118); POTASSIUM 3.4 mmol/L (3.5-5.1); SODIUM 142 mmol/L (136-145)
[2018-07-16] MEDS: FAMOTIDINE 20 MG TAB PO SCH (07:15)
[2018-07-16] MEDS ORDERED: FAMOTIDINE 20 MG TAB PO SCH (08:00)
[2018-07-16] MEDS ORDERED: ALBUTEROL SULFATE HFA 8GM INHALATION AEROSOL INH SCH (08:45)
[2018-07-16] MEDS ORDERED: MULTIVITAMINS/MINERALS TAB PO SCH (09:00)
[2018-07-16] MEDS: PANTOPRAZOLE SOD 40 MG TABEC PO SCH ×2 (09:23→17:10)
[2018-07-16] MEDS: FLUTICASONE PROPIONATE NASAL SPRAY NS SCH ×2 (10:28→17:10)
[2018-07-16] MEDS: METOPROLOL SUCCINATE 50 MG TAB XL PO SCH (10:29)
[2018-07-16] MEDS: AMLODIPINE BESYLATE 10 MG TAB PO SCH (10:29)
[2018-07-16] MEDS: HYDROCHLOROTHIAZIDE 25 MG TAB PO SCH (10:29)
[2018-07-16] MEDS: LOSARTAN POTASSIUM 25 MG TAB PO SCH (10:29)
[2018-07-16] MEDS: DESVENLAFAXINE SUCCINATE 50 MG TAB.SR.24H PO SCH (10:29)
[2018-07-16] MEDS: OLMESARTAN 20 MG TAB PO SCH (10:29)
--- NOTE | 2018-07-16 10:34 | Consultation ---
DATE OF CONSULTATION: PULMONARY CONSULTATION This is a patient of Dr. Miller, Dr. Koo, and Dr. Herring. This charming, but unfortunate, 78-year-old woman, with a history of progressive dyspnea over 2 days, was unable to walk at all yesterday. Uses a walker. Has been sedentary of late. History of psoriatic arthritis, history of mild asthma for 20 years, diverticular disease, history of chronic back pain which limits her, TIA in 2010. Worked as a schoolteacher. Nonsmoker. No alcohol use. ALLERGIES: HAS MULTIPLE MEDICATION ALLERGIES INCLUDING AMPICILLIN, KEFLEX, CRESTOR, DARVON, FLUCONAZOLE, AZITHROMYCIN, FLOXIN, IODINE, SUDAFED, OMNICEF, ROBAXIN, SHELLFISH, SOMA, SULFA, TETRACYCLINE, GABAPENTIN, CLINDAMYCIN, MECLIZINE, OTEZLA. MANY OF THESE ARE NOT ALLERGIES BUT RATHER SHE HAS SIDE EFFECTS. CRESTOR CAUSES MUSCLE ACHES, AMPICILLIN AND KEFLEX A RASH, IODINE BLISTERS, SUDAFED LOSS OF VISION AND PALPITATIONS. CURRENT MEDICATIONS: Include Enbrel injections, Combivent, mometasone nasal spray, albuterol, Restasis, clobetasol solution, Questran, chlorthalidone, Nexium, Pristiq, fenofibric acid, olmesartan, metoprolol, montelukast, levocetirizine, Celebrex and nitrofurantoin. Well-developed, sprightly, white female in no acute distress, looking her stated age. She has worked as an elementary schoolteacher. Born in [place], [place]. Has had appendectomy, gallbladder and hysterectomy. PHYSICAL EXAMINATION VITALS: Temperature 98, pulse 76, respirations 15, blood pressure 153/71. HEENT: Head is normocephalic and atraumatic. Eyes: The extraocular movements are intact. LUNGS: Clear. HEART: Regular rate and rhythm. ABDOMEN: Nontender. EXTREMITIES: No edema. Psoriatic rash noted. IMPRESSION: Submassive pulmonary embolism. PLAN: Anticoagulation. Long-term anticoagulation may be necessary in view of her sedentary lifestyle. There is no family history to suggest propensity to clotting. Recommend at least 3-month course of anticoagulation though it may be prudent to extend this given her sedentary lifestyle. Thank you for this kind referral. Job#: [id number] MH
[2018-07-16 11:20] LABS: CREATINE KINASE MB 3.2 ng/mL (0-5.0)
[2018-07-16] MEDS: ATENOLOL 50 MG TAB PO SCH (12:01)
[2018-07-16] MEDS: WARFARIN SOD 5 MG TAB PO SCH (17:28)
[2018-07-16] MEDS: MONTELUKAST SODIUM 10 MG TAB PO SCH (20:49)
[2018-07-16] MEDS: HEPARIN 25,000 UNIT/D5W 250ML 250 ML IV SCH (20:51)
[2018-07-17] VITALS (22 sets, daily range): BP systolic 124–162; BP diastolic 52–74
[2018-07-17 05:10] LABS: BASOPHILS # (AUTO) 0.1 (0.0-0.1); BASOPHILS % 0.6 % (0.0-1.0); EOSINOPHILS # (AUTO) 0.2 (0.0-0.4); EOSINOPHILS % 2.8 % (0.0-6.0); HEMATOCRIT 37.2 % (34.2-44.1); HEMOGLOBIN 11.9 g/dL (12.0-16.0); LYMPHOCYTES # (AUTO) 3.5 (1.0-3.2); LYMPHOCYTES % 44.9 % (18.0-39.1); MEAN CORPUSCULAR HEMOGLOBIN 29.8 pg (28-32); MONOCYTES # (AUTO) 0.6 (0.2-0.8); MONOCYTES % 7.5 % (4.4-11.3); NEUTROPHILS # (AUTO) 3.4 (2.1-6.9); NEUTROPHILS % 43.7 % (38.7-80.0); PLATELET COUNT 170 x10e3/uL (140-360); RED CELL DISTRIBUTION WIDTH 13.4 % (11.7-14.4)
[2018-07-17 05:28] LABS: INR 0.99
[2018-07-17 05:29] LABS: PARTIAL THROMBOPLASTIN TIME 54.8 seconds (23.8-35.5)
[2018-07-17 05:43] LABS: ALBUMIN 3.2 g/dL (3.5-5.0); ALBUMIN/GLOBULIN RATIO 1.3 (0.8-2.0); ANION GAP 13.9 mmol/L (8-16); CREATININE, SERUM 0.9 mg/dL (0.57-1.11); POTASSIUM 3.9 mmol/L (3.5-5.1)
--- NOTE | 2018-07-17 07:15 | NUR ---
Patient received awake, alert and Ox4. Respirations are even and unlabored. Denies any pain or discomfort. On Dilaudid CLAMMER pump and tolerating well. Abdominal dressing is dry and intact. Has right and left SUSANNA drains and draining sanguinous fluid of minimal amount to each SUSANNA drain. Denies any nausea or vomiting.
[2018-07-17] MEDS: PANTOPRAZOLE SOD 40 MG TABEC PO SCH ×2 (07:30→16:30)
[2018-07-17] MEDS: FLUTICASONE PROPIONATE NASAL SPRAY NS SCH ×2 (08:50→17:26)
[2018-07-17] MEDS: HYDROCHLOROTHIAZIDE 25 MG TAB PO SCH (09:01)
[2018-07-17] MEDS: DESVENLAFAXINE SUCCINATE 50 MG TAB.SR.24H PO SCH (09:05)
[2018-07-17] MEDS: LOSARTAN POTASSIUM 25 MG TAB PO SCH (09:16)
[2018-07-17] MEDS: AMLODIPINE BESYLATE 10 MG TAB PO SCH (09:16)
[2018-07-17] MEDS: METOPROLOL SUCCINATE 50 MG TAB XL PO SCH (09:17)
[2018-07-17] MEDS: SODIUM CHLORIDE 0.9% 1000ML 1,000 ML IV SCH (10:55)
[2018-07-17] MEDS: ATENOLOL 50 MG TAB PO SCH (11:30)
[2018-07-17] MEDS: HEPARIN 25,000 UNIT/D5W 250ML 250 ML IV SCH (11:40)
[2018-07-17] MEDS ORDERED: SALINE 0.65% NAS SOLN 1 SPRAY BTL PRN (13:00)
--- NOTE | 2018-07-17 14:03 | NUR ---
Nutrition Screen Note RD Recommendation for Physician: -Continue cardiac diet as ordered Plan of Care: RD following, monitoring for tolerance and adequacy Nutrition reason for involvement: RN Consult no reason stated Primary Diagnose(s): Submassive pulmonary embolism PMH: psoriatic arthritis, asthma, diverticular disease, chronic back pain Ht: 66in Wt: 187lb BMI: 30.3kg/m2 IBW: 130lb RD Assessment: (07/17) Chart reviewed. Labs and meds reviewed. 78 yo F, who is admitted for pulmonary embolism. Visited pt in the room. Pt reports good appetite with 75-100% recorded PO intake. No GI complains noted. LBM 07/17. Pt denies any chewing or swallowing difficulty. No recent weight loss reported. Will continue to monitor and follow. Current Diet: cardiac diet Malnutrition Evaluation (07/17) The patient does not meet criteria for a specified degree of malnutrition at this time. Will re-evaluate at follow-up as appropriate. Diet Education Needs Assessment: Diet education not indicated. Nutrition Care Level: low Signed: Feli Portillo, MS, RD, LD
[2018-07-17] MEDS: WARFARIN SOD 5 MG TAB PO SCH (17:30)
[2018-07-17] MEDS: MONTELUKAST SODIUM 10 MG TAB PO SCH (22:07)
--- NOTE | 2018-07-17 23:30 | NUR ---
Report to ANN MARIE Davis
--- NOTE | 2018-07-17 23:45 | NUR ---
Pt transferred to [facility] via Hospital bed, accompanied by 2 RNs. Tele monitor on. Pt was recieved in room by ANN MARIE Davis Addendum: 07/18/18 at 0011 by Mary Holm RN Heparin drip and NS infusing via (L) Hand PIV
--- NOTE | 2018-07-17 23:50 | NUR ---
PT ARRIVING TO UNIT VIA HOSPITAL BED WITH STAFF, NO DISTRESS NOTED, PT ALERT AND ORIENTED, ASSESSMENT COMPLETER, DENIES NEEDS, BED LOCKED AND LOW, IV INFUSING PER ORDER, TELEMETRY NOTED, CALL LIGHT IN REACH, INSTRUCTED TO CALL WITH NEEDS
[2018-07-18] VITALS (7 sets, daily range): BP systolic 129–188; BP diastolic 60–74
--- NOTE | 2018-07-18 05:36 | NUR ---
PT RESTING IN BED WITH CPAP WORN , NO DISTRESS NOTED, CALL LIGHT IN REACH Addendum: 07/18/18 at 0537 by PAGE SUBRAMANIAN RN PT RESTING IN BED WITH EYES CLOSED
[2018-07-18] MEDS: FLUTICASONE PROPIONATE NASAL SPRAY NS SCH ×2 (09:16→16:46)
[2018-07-18] MEDS: SODIUM CHLORIDE 0.9% 1000ML 1,000 ML IV SCH (09:17)
[2018-07-18] MEDS: OLMESARTAN 20 MG TAB PO SCH (09:17)
[2018-07-18] MEDS: AMLODIPINE BESYLATE 10 MG TAB PO SCH (09:17)
[2018-07-18] MEDS: PANTOPRAZOLE SOD 40 MG TABEC PO SCH ×2 (09:17→16:46)
[2018-07-18] MEDS: DESVENLAFAXINE SUCCINATE 50 MG TAB.SR.24H PO SCH (09:17)
[2018-07-18] MEDS: HYDROCHLOROTHIAZIDE 25 MG TAB PO SCH (09:17)
--- NOTE | 2018-07-18 11:47 | NUR ---
RECEIVED ORDER FOR HSE. ADDED SN EVAL AND TREAT. MET W THE PT AT THE BEDSIDE. PT STATES SHE HAS NOT RECEIVED HH IN THE PAST, BUT HER DAUGHTER WORKS FOR A HH AGENCY AND WOULD LIKE FOR ME TO CALL HER TO SEE IF HER COMPANY IS IN NETWORK [employer] It [employer] Check. PROVIDED CHOICE LETTER AND NAMES OF KNOWN HH AGENCIES IN NETWORK [employer] Check. STATES IF HER DTR'S HH IS NOT IN NETWORK ANY ONE IN NETWORK IS OK. CHOICE LETTER WAS SIGNED AND COPY TO CHART AND COPY WILL BE PROVIDED TO THE PT. CALL MADE TO CHRISSY MACIAS; DTR, AT [phone]. NO ANSWER AND VM WAS FULL. WILL F/U.
[2018-07-18] MEDS: METOPROLOL SUCCINATE 50 MG TAB XL PO SCH (12:15)
--- NOTE | 2018-07-18 13:21 | NUR ---
CM ATTEMPTED TO CONTACT DAUGHTERCHRISSY 3 ADDL CALLS, BUT NO ANSWER AND VM WAS FULL. [facility] FOR SN EVAL AND TREAT, PT EVAL AND TREAT FAXED TO [facility] @ [phone] / FAX: [phone]. PER NURSE PT WILL PROBABLY DC HOME SATURDAY OR SATURDAY.
--- NOTE | 2018-07-18 13:52 | NUR ---
Nutrition Screen Note RD Recommendation for Physician: - Continue cardiac diet as ordered Plan of Care: RD following, monitoring for tolerance and adequacy Nutrition reason for involvement: MD consult- diet education Primary Diagnose(s): Submassive pulmonary embolism PMH: psoriatic arthritis, asthma, diverticular disease, chronic back pain Ht: 66in Wt: 187lb BMI: 30.3kg/m2 IBW: 130lb RD Assessment: (07/18). Evaluated pt yesterday. No change in nutrition status. Diet education on vitamin K nutrition therapy has been provided. Will continue to monitor and follow. (07/17) Chart reviewed. Labs and meds reviewed. 78 yo F, who is admitted for pulmonary embolism. Visited pt in the room. Pt reports good appetite with 75-100% recorded PO intake. No GI complains noted. LBM 07/17. Pt denies any chewing or swallowing difficulty. No recent weight loss reported. Will continue to monitor and follow. Current Diet: cardiac diet Malnutrition Evaluation (07/17) The patient does not meet criteria for a specified degree of malnutrition at this time. Will re-evaluate at follow-up as appropriate. Diet Education Needs Assessment: Diet education indicated, pt is agreeable with plan. Learner(s): pt Barriers: none Cultural/Language Modifications: none Readiness: ready Method: handout, explanation Topics: Vitamin K nutrition therapy Understanding/Compliance: Pt understood. All questions have been answered. Nutrition Care Level: low Signed: Feli Portillo, MS, RD, LD
[2018-07-18 14:43] LABS: INR 0.95; PROTHROMBIN TIME 13.5 seconds (11.9-14.5)
[2018-07-18] MEDS: HEPARIN 25,000 UNIT/D5W 250ML 250 ML IV SCH (15:02)
[2018-07-18] MEDS: WARFARIN SOD 5 MG TAB PO SCH (16:46)
--- NOTE | 2018-07-18 19:10 | NUR ---
REPORT RECEIVED FROM OFF GOING NURSE, PT SITTING UP AT BEDSIDE COLORING, NO DISTRESS NOTED, PT ASSISTED TO VOID IN RESTROOM, IV INFUSING PER ORDER, DENIES NEEDS, CALL LIGHT IN REACH, INSTRUCTED TO CALL WITH NEEDS, TELEMETRY NOTED
[2018-07-18] MEDS: MONTELUKAST SODIUM 10 MG TAB PO SCH (21:00)
[2018-07-19] VITALS (8 sets, daily range): BP systolic 143–163; BP diastolic 63–68
[2018-07-19] MEDS: SODIUM CHLORIDE 0.9% 1000ML 1,000 ML IV SCH (02:02)
--- NOTE | 2018-07-19 05:53 | NUR ---
PT RESTING IN BED WITH EYES CLOSED, CPAP WORN, NO DISTRESS NOTED, CALL LIGHT IN REACH, PLANTING MACHINE OPERATOR IN PLACE
[2018-07-19] MEDS: HEPARIN 25,000 UNIT/D5W 250ML 250 ML IV SCH (06:46)
[2018-07-19 07:30] LABS: INR 1.05; PROTHROMBIN TIME 14.6 seconds (11.9-14.5)
--- NOTE | 2018-07-19 09:05 | NUR ---
Pt received resting in bed. Heparin drip at 15ML/hr & NS at 50 ML/hr ongoing. Bleeding & fall precautions maintained. All meds given as ordered. Will monitor
[2018-07-19] MEDS: FLUTICASONE PROPIONATE NASAL SPRAY NS SCH ×2 (09:11→17:33)
[2018-07-19] MEDS: PANTOPRAZOLE SOD 40 MG TABEC PO SCH ×2 (09:11→17:33)
[2018-07-19] MEDS: OLMESARTAN 20 MG TAB PO SCH (09:12)
[2018-07-19] MEDS: METOPROLOL SUCCINATE 50 MG TAB XL PO SCH (09:12)
[2018-07-19] MEDS: DESVENLAFAXINE SUCCINATE 50 MG TAB.SR.24H PO SCH (09:12)
[2018-07-19] MEDS: AMLODIPINE BESYLATE 10 MG TAB PO SCH (09:12)
[2018-07-19] MEDS: HYDROCHLOROTHIAZIDE 25 MG TAB PO SCH (09:12)
[2018-07-19] MEDS ORDERED: WARFARIN SOD 5 MG TAB PO ONE (17:00)
[2018-07-19] MEDS: WARFARIN SOD 5 MG TAB PO SCH (17:33)
--- NOTE | 2018-07-19 19:00 | NUR ---
REPORT RECEIVED FROM OFF GOING NURSE, PT RESTING IN BED ALERT AND ORIENTED, VISITING WITH FAMILY, IV INFUSING PER ORDER, BED LOCKED AND LOW, CALL LIGHT IN REACH, INSTRUCTED TO CALL WITH NEEDS, DENIES NEEDS, AT THIS TIME
[2018-07-19] MEDS: MONTELUKAST SODIUM 10 MG TAB PO SCH (21:00)
[2018-07-20] VITALS (7 sets, daily range): BP systolic 122–161; BP diastolic 59–73
--- NOTE | 2018-07-20 06:54 | NUR ---
PT ALERT AND ORIENTED, ASSISTED TO RESTROOM WITH WALKER, NO DISTRESS NOTED, PT ASSISTED BED, CPAP WORN , BED LOCKED AND LOW, CALL LIGHT IN REACH, TELEMETRY NOTED, INSTRUCTED TO CALL WITH NEEDS, IV INFUSING PER ORDER
[2018-07-20] MEDS: PANTOPRAZOLE SOD 40 MG TABEC PO SCH ×2 (09:05→17:05)
[2018-07-20] MEDS: FLUTICASONE PROPIONATE NASAL SPRAY NS SCH ×2 (09:05→17:05)
[2018-07-20] MEDS: METOPROLOL SUCCINATE 50 MG TAB XL PO SCH (09:06)
[2018-07-20] MEDS: DESVENLAFAXINE SUCCINATE 50 MG TAB.SR.24H PO SCH (09:06)
[2018-07-20] MEDS: AMLODIPINE BESYLATE 10 MG TAB PO SCH (09:06)
[2018-07-20] MEDS: OLMESARTAN 20 MG TAB PO SCH (09:06)
[2018-07-20] MEDS: HYDROCHLOROTHIAZIDE 25 MG TAB PO SCH (09:06)
[2018-07-20 10:24] LABS: INR 1.11; PROTHROMBIN TIME 15.3 seconds (11.9-14.5)
--- NOTE | 2018-07-20 10:57 | NUR ---
PTT LEVEL IS A 71.2 AT THIS TIME WITHIN THERAPEUTIC LEVEL. KEEPING RATE AT 15CC/HR
[2018-07-20] MEDS: HEPARIN 25,000 UNIT/D5W 250ML 250 ML IV SCH (16:24)
[2018-07-20] MEDS: WARFARIN SOD 5 MG TAB PO SCH (17:06)
[2018-07-20] MEDS: BETAMETHASONE DIP AUG 0.05% CRM 15 GM TUBE TOP SCH (18:19)
[2018-07-20] MEDS: MONTELUKAST SODIUM 10 MG TAB PO SCH (20:19)
[2018-07-20] MEDS ORDERED: MAGNESIUM/ALUMINUM/SIMETHICONE 30 ML UDC PO PRN (21:30)
[2018-07-21] VITALS (8 sets, daily range): BP systolic 115–155; BP diastolic 56–67
[2018-07-21 06:27] LABS: INR 1.31; PROTHROMBIN TIME 17.4 seconds (11.9-14.5)
[2018-07-21] MEDS: METOPROLOL SUCCINATE 50 MG TAB XL PO SCH (08:15)
[2018-07-21] MEDS: DESVENLAFAXINE SUCCINATE 50 MG TAB.SR.24H PO SCH (08:15)
[2018-07-21] MEDS: OLMESARTAN 20 MG TAB PO SCH (08:15)
[2018-07-21] MEDS: PANTOPRAZOLE SOD 40 MG TABEC PO SCH ×2 (08:15→16:58)
[2018-07-21] MEDS: AMLODIPINE BESYLATE 10 MG TAB PO SCH (08:15)
[2018-07-21] MEDS: HYDROCHLOROTHIAZIDE 25 MG TAB PO SCH (08:15)
[2018-07-21] MEDS: FLUTICASONE PROPIONATE NASAL SPRAY NS SCH ×2 (08:15→16:58)
--- NOTE | 2018-07-21 08:15 | NUR ---
Pt received resting in bed. All meds given as ordered. Heparin drip ongoing at 1500units per hour. Emotional support given. Fall precautions maintained. Will monitor
[2018-07-21] MEDS: BETAMETHASONE DIP AUG 0.05% CRM 15 GM TUBE TOP SCH ×2 (08:16→16:59)
--- NOTE | 2018-07-21 09:35 | NUR ---
Ptt greater than therapeutic level (86 secs). Heparin drip decreased to 1400units/hr. PTT ordered for 1540. Will follow up
[2018-07-21] MEDS: HEPARIN 25,000 UNIT/D5W 250ML 250 ML IV SCH ×2 (09:40→10:45)
[2018-07-21] MEDS: LORATADINE/PSEUDOEPHEDRINE 24 HR SR TAB PO SCH (12:07)
--- NOTE | 2018-07-21 16:10 | NUR ---
PTT 65.5 secs (therapeutic) will order follow up lab in 6 hours. No bleeding noted. Will monitor
[2018-07-21] MEDS: WARFARIN SOD 5 MG TAB PO SCH (16:58)
--- NOTE | 2018-07-21 19:38 | NUR ---
Received pt in bed awake and alert. No S/S of resp distress. Call light within reach and instructed to call for assistance. Pt verbalized understanding.
[2018-07-21] MEDS: MONTELUKAST SODIUM 10 MG TAB PO SCH (21:32)
[2018-07-22] VITALS (7 sets, daily range): BP systolic 123–146; BP diastolic 56–65
[2018-07-22] MEDS: HEPARIN 25,000 UNIT/D5W 250ML 250 ML IV SCH ×2 (03:53→12:00)
[2018-07-22 05:56] LABS: BASOPHILS # (AUTO) 0.1 (0.0-0.1); BASOPHILS % 0.9 % (0.0-1.0); EOSINOPHILS # (AUTO) 0.2 (0.0-0.4); EOSINOPHILS % 3.4 % (0.0-6.0); HEMATOCRIT 40.1 % (34.2-44.1); LYMPHOCYTES # (AUTO) 1.9 (1.0-3.2); LYMPHOCYTES % 33.8 % (18.0-39.1); MEAN CORPUSCULAR HEMOGLOBIN 29.2 pg (28-32); MEAN CORPUSCULAR HGB CONC 32.4 g/dL (31-35); MEAN CORPUSCULAR VOLUME 90.1 fL (81-99); MONOCYTES # (AUTO) 0.6 (0.2-0.8); MONOCYTES % 11.2 % (4.4-11.3); NEUTROPHILS # (AUTO) 2.8 (2.1-6.9); PLATELET COUNT 203 x10e3/uL (140-360); RED BLOOD COUNT 4.45 x10e6/uL (3.6-5.1); RED CELL DISTRIBUTION WIDTH 13.3 % (11.7-14.4)
[2018-07-22 06:58] LABS: INR 1.31; PROTHROMBIN TIME 17.4 seconds (11.9-14.5)
--- NOTE | 2018-07-22 08:25 | NUR ---
Pt received resting in bed. Heparin drip ongoing at 1400 Units per hour via right forearm IV, first PTT was at 0525. No c/o pain or discomfort noted or voiced. All meds given as ordered. Call bettencourt within reach. Will follow up with PTT at 1130am
[2018-07-22] MEDS: PANTOPRAZOLE SOD 40 MG TABEC PO SCH ×2 (08:26→16:04)
[2018-07-22] MEDS: DESVENLAFAXINE SUCCINATE 50 MG TAB.SR.24H PO SCH (08:26)
[2018-07-22] MEDS: FLUTICASONE PROPIONATE NASAL SPRAY NS SCH ×2 (08:26→16:04)
[2018-07-22] MEDS: OLMESARTAN 20 MG TAB PO SCH (08:26)
[2018-07-22] MEDS: AMLODIPINE BESYLATE 10 MG TAB PO SCH (08:26)
[2018-07-22] MEDS: LORATADINE/PSEUDOEPHEDRINE 24 HR SR TAB PO SCH (08:26)
[2018-07-22] MEDS: HYDROCHLOROTHIAZIDE 25 MG TAB PO SCH (08:26)
[2018-07-22] MEDS: METOPROLOL SUCCINATE 50 MG TAB XL PO SCH (08:27)
[2018-07-22] MEDS: BETAMETHASONE DIP AUG 0.05% CRM 15 GM TUBE TOP SCH ×2 (08:27→16:04)
--- NOTE | 2018-07-22 12:05 | NUR ---
PTT 86.4. Heparin drip decreased to 1400units per hour. PTT ordered for 6pm
[2018-07-22] MEDS: WARFARIN SOD 5 MG TAB PO SCH (16:04)
[2018-07-22] MEDS ORDERED: HEPARIN 25,000 UNIT/D5W 250ML 250 ML IV SCH (19:00)
--- NOTE | 2018-07-22 19:00 | NUR ---
pt currentlt getting heparin at 1400u/hr. 1800 ptt result was 83.0--will decrease rate by 100u/hr per protocol. new rate starting at 1900 will be 1300u/hr. next ptt will be done at 0100.
[2018-07-22] MEDS: MONTELUKAST SODIUM 10 MG TAB PO SCH (20:38)
[2018-07-23] VITALS (7 sets, daily range): BP systolic 119–132; BP diastolic 55–61
--- NOTE | 2018-07-23 01:00 | NUR ---
0100 ptt is 77.6-- no change in dose per protocol. will stay at current rate of 1300u/hr. next ptt is at 0700.
[2018-07-23 05:39] LABS: BASOPHILS # (AUTO) 0.1 (0.0-0.1); BASOPHILS % 0.9 % (0.0-1.0); EOSINOPHILS # (AUTO) 0.2 (0.0-0.4); EOSINOPHILS % 3.4 % (0.0-6.0); HEMATOCRIT 41.3 % (34.2-44.1); HEMOGLOBIN 13.3 g/dL (12.0-16.0); LYMPHOCYTES # (AUTO) 1.9 (1.0-3.2); LYMPHOCYTES % 34.4 % (18.0-39.1); MEAN CORPUSCULAR HEMOGLOBIN 29.2 pg (28-32); MEAN CORPUSCULAR HGB CONC 32.2 g/dL (31-35); MEAN CORPUSCULAR VOLUME 90.6 fL (81-99); MONOCYTES # (AUTO) 0.6 (0.2-0.8); NEUTROPHILS # (AUTO) 2.8 (2.1-6.9); NEUTROPHILS % 49.9 % (38.7-80.0); PLATELET COUNT 225 x10e3/uL (140-360); RED BLOOD COUNT 4.56 x10e6/uL (3.6-5.1); RED CELL DISTRIBUTION WIDTH 13.2 % (11.7-14.4)
[2018-07-23 05:53] LABS: INR 1.38; PROTHROMBIN TIME 18.1 seconds (11.9-14.5)
[2018-07-23 06:02] LABS: ANION GAP 13.5 mmol/L (8-16); CALCIUM 9.9 mg/dL (8.4-10.2); CREATININE, SERUM 0.98 mg/dL (0.57-1.11); POTASSIUM 3.5 mmol/L (3.5-5.1)
[2018-07-23] MEDS: HEPARIN 25,000 UNIT/D5W 250ML 250 ML IV SCH (07:00)
[2018-07-23] MEDS: FLUTICASONE PROPIONATE NASAL SPRAY NS SCH ×2 (08:23→17:35)
[2018-07-23] MEDS: OLMESARTAN 20 MG TAB PO SCH (08:23)
[2018-07-23] MEDS: DESVENLAFAXINE SUCCINATE 50 MG TAB.SR.24H PO SCH (08:23)
[2018-07-23] MEDS: AMLODIPINE BESYLATE 10 MG TAB PO SCH (08:23)
[2018-07-23] MEDS: PANTOPRAZOLE SOD 40 MG TABEC PO SCH ×2 (08:23→17:35)
[2018-07-23] MEDS: LORATADINE/PSEUDOEPHEDRINE 24 HR SR TAB PO SCH (08:23)
[2018-07-23] MEDS: HYDROCHLOROTHIAZIDE 25 MG TAB PO SCH (08:23)
[2018-07-23] MEDS: METOPROLOL SUCCINATE 50 MG TAB XL PO SCH (08:24)
[2018-07-23] MEDS: BETAMETHASONE DIP AUG 0.05% CRM 15 GM TUBE TOP SCH ×2 (08:24→17:37)
--- NOTE | 2018-07-23 08:24 | NUR ---
Pt received resting in bed. Pt receiving Heparin drip decreased to 1200 Units per hour. Alert and oriented x4. Emotional support support given. Call bettencourt within reach. Will monitor
--- NOTE | 2018-07-23 15:14 | NUR ---
PTT 64.1 sec. No change in Heparin rate needed. Heparin drip ongoing at 1200 units per hour. No bleeding or bruising noted. Will monitor
[2018-07-23] MEDS: WARFARIN SOD 5 MG TAB PO SCH (17:36)
--- NOTE | 2018-07-23 19:10 | NUR ---
Completed bedside rounds with morning nurse. Pt lying in bed HOB 30 degrees. Alert to name. Denies pain at this time. No acute distress noted.
[2018-07-23] MEDS: MONTELUKAST SODIUM 10 MG TAB PO SCH (21:30)
[2018-07-23 22:01] LABS: CLARITY,URINE HAZY (CLEAR); COLOR,URINE YELLOW (YELLOW)
[2018-07-23 22:02] LABS: BILIRUBIN,URINE NEGATIVE (NEGATIVE); KETONES,URINE NEGATIVE (NEGATIVE); LEUKOCYTE ESTERASE ,URINE 1+ (NEGATIVE); NITRITE,URINE NEGATIVE (NEGATIVE); PROTEIN,URINE DIPSTICK 1+ (NEGATIVE); URINE UROBILINOGEN 0.2 mg/dL (0.2 - 1)
[2018-07-23 22:20] LABS: BACTERIA,URINE MODERATE /HPF; EPITHELIAL CELLS,URINE MANY /LPF; TRANSITIONAL EPI CELLS,URINE MANY; WBC,URINE (MAN) >50 /HPF (0-5)
[2018-07-24] VITALS (7 sets, daily range): BP systolic 107–155; BP diastolic 53–88
[2018-07-24 05:56] LABS: INR 1.52; PROTHROMBIN TIME 19.6 seconds (11.9-14.5)
[2018-07-24] MEDS: HYDROCHLOROTHIAZIDE 25 MG TAB PO SCH (08:47)
[2018-07-24] MEDS: LORATADINE/PSEUDOEPHEDRINE 24 HR SR TAB PO SCH (08:47)
[2018-07-24] MEDS: FLUTICASONE PROPIONATE NASAL SPRAY NS SCH ×2 (08:47→17:37)
[2018-07-24] MEDS: PANTOPRAZOLE SOD 40 MG TABEC PO SCH ×2 (08:47→17:37)
[2018-07-24] MEDS: OLMESARTAN 20 MG TAB PO SCH (08:47)
[2018-07-24] MEDS: AMLODIPINE BESYLATE 10 MG TAB PO SCH (08:47)
[2018-07-24] MEDS: DESVENLAFAXINE SUCCINATE 50 MG TAB.SR.24H PO SCH (08:48)
[2018-07-24] MEDS: METOPROLOL SUCCINATE 50 MG TAB XL PO SCH (08:48)
[2018-07-24] MEDS: BETAMETHASONE DIP AUG 0.05% CRM 15 GM TUBE TOP SCH ×2 (08:48→17:37)
[2018-07-24] MEDS: HEPARIN 25,000 UNIT/D5W 250ML 250 ML IV SCH (12:10)
--- NOTE | 2018-07-24 15:56 | NUR ---
MET W THE PT AT THE BEDSIDE TO SIGN IMM. EXPLAINED IMM LETTER. PT VERBALIZED UNDERSTANDING. COPY GIVEN TO PT AND COPY TO CHART. 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 CM SPOKE W JERRI ON PT'S PHONE. STATES SHE WORKS FOR [facility] STAFF AND WOULD LIKE THE REFERRAL FAXED TO [phone]. RECEIVED A CALL FROM LITZY Bach [facility]; [phone] ASKING ABOUT PT DC DATE AND IF THE PT WAS GOING W [facility]. VERIFIED [facility] OK TO ACCEPT THE PT. THEY ACCEPT [facility]. REFERRAL WAS FAXED TO [facility] REQUESTED BY THE PT. CALL RETURNED TO LITZY / JONH TO CANCEL HH REQUEST DUE TO PT CHOOSING TO USE HER DAUGHTER'S HH AGENCY. SHE VERBALIZED UNDERSTANDING.
[2018-07-24] MEDS: WARFARIN SOD 5 MG TAB PO SCH (17:37)
[2018-07-24] MEDS: MONTELUKAST SODIUM 10 MG TAB PO SCH (21:17)
[2018-07-25] VITALS (10 sets, daily range): BP systolic 118–133; BP diastolic 56–68
--- NOTE | 2018-07-25 07:14 | NUR ---
PATIENT IN BED RESTING WITH NO RESPIRATORY DISTRESS. CPAP IN PLACE, BRUISES TO BOTH ARMS, TELEMETRY BOX 2450. BED IN LOWER POSITION, CALL LIGHT AT REACH.
[2018-07-25] MEDS: HEPARIN 25,000 UNIT/D5W 250ML 250 ML IV SCH (08:00)
[2018-07-25] MEDS: PANTOPRAZOLE SOD 40 MG TABEC PO SCH ×2 (08:02→16:30)
[2018-07-25] MEDS: FLUTICASONE PROPIONATE NASAL SPRAY NS SCH ×2 (09:21→18:00)
[2018-07-25] MEDS: OLMESARTAN 20 MG TAB PO SCH (09:22)
[2018-07-25] MEDS: METOPROLOL SUCCINATE 50 MG TAB XL PO SCH (09:22)
[2018-07-25] MEDS: AMLODIPINE BESYLATE 10 MG TAB PO SCH (09:22)
[2018-07-25] MEDS: DESVENLAFAXINE SUCCINATE 50 MG TAB.SR.24H PO SCH (09:22)
[2018-07-25] MEDS: LORATADINE/PSEUDOEPHEDRINE 24 HR SR TAB PO SCH (09:22)
[2018-07-25] MEDS: HYDROCHLOROTHIAZIDE 25 MG TAB PO SCH (09:22)
[2018-07-25 09:34] LABS: INR 1.79; PROTHROMBIN TIME 22.2 seconds (11.9-14.5)
[2018-07-25 09:36] LABS: PARTIAL THROMBOPLASTIN TIME 79.3 seconds (23.8-35.5)
[2018-07-25] MEDS: BETAMETHASONE DIP AUG 0.05% CRM 15 GM TUBE TOP SCH ×2 (10:00→18:01)
--- NOTE | 2018-07-25 10:57 | Consultation ---
DATE OF CONSULTATION: July 16, 2018 Mrs. Lopez is a 78-year-old white female who has been referred to me for evaluation of pulmonary emboli. These were spontaneous pulmonary emboli. The patient has had shortness of breath. Subsequently, was seen and admitted for further evaluation and treatment. The CT scan of the chest showed bilateral pulmonary emboli. SOCIAL HISTORY: Noncontributory. FAMILY HISTORY: Noncontributory. ALLERGIES: REPORTED NONE. MEDICATIONS: At this time: 1. Heparin. 2. Albuterol. 3. Amlodipine. 4. Pristiq. 5. Flonase. 6. Hydrochlorothiazide. 7. Metoprolol. 8. Montelukast. 9. Benicar. 10. Ondansetron. 11. Protonix. 12. Normal saline. REVIEW OF SYSTEMS HEENT: Normal. CARDIAC: History of hypertension. RESPIRATORY: History of pulmonary emboli. GI: Normal. : Normal. MUSCULOSKELETAL: Normal. SKIN AND BREASTS: Normal. NEUROENDOCRINE: Essentially normal. PHYSICAL EXAMINATION GENERAL: A moderately built female very pleasant. No palpable adenopathy. On oxygen. HEART: Within normal limits. LUNGS: Clear. ABDOMEN: Obese. RECTAL: Vaginal examination deferred. CENTRAL NERVOUS SYSTEM: Essentially normal. EXTREMITIES: Essentially normal. LABS: Shows a hemoglobin of 14.1, hematocrit 42.9, white count of 8600, and platelets of 169,000. Chemistry shows a sodium of 142, potassium 3.7, chloride 106, CO2 26, BUN 21, creatinine 0.8, glucose 120. Calcium 10. Bilirubin 0.5, SGOT 30, SGPT 33, alkaline phosphatase 54. The patient's D-dimer is high at 2.6. Imaging consists of CT of the chest, which showed multiple pulmonary emboli. IMPRESSION 1. Spontaneous pulmonary emboli. 2. History of hypertension. PLAN, COMMENTS AND SUGGESTIONS: Suggest both heparin continuous infusion weight-based protocol. I have added Coumadin. Since spontaneous pulmonary emboli without any provocation, I suggest "long-term" anticoagulation for this lady. Thank you very much for allowing me to participate in the management this patient. I will be more than happy to follow this patient. The attending would call and make an appointment for me to follow. Job#: [id number] RI cc:MD SERENA HAQUE MD
--- NOTE | 2018-07-25 11:36 | NUR ---
PATIENT ASSISTED TO THE RESTROOM AND BACK TO BED. URINE SPECIMEN COLLECTED AND SENT TO THE LAB. BED IN LOWER POSITION, CALL LIGHT AT REACH.
--- NOTE | 2018-07-25 14:38 | NUR ---
Spoke with Belkys with [facility] to give her the correct address of pt daughter, where pt will dc to probably tomorrow. daughter: Clair Silva [address] [place] [address] Belkys stated she has already confirmed this information with the daughter. Anticipate dc home tomorrow, to her daughter's home. [facility] will follow her. [facility] [phone] fax: [phone]
--- NOTE | 2018-07-25 14:41 | NUR ---
IMM explained to pt and she verbalized understanding and signed. Copy given to her, and original placed on the chart.
--- NOTE | 2018-07-25 15:40 | NUR ---
Nutrition Screen Note RD Recommendation for Physician: - Continue cardiac diet as ordered Plan of Care: RD following, monitoring for tolerance and adequacy Nutrition reason for involvement: Follow up Primary Diagnose(s): Submassive pulmonary embolism PMH: psoriatic arthritis, asthma, diverticular disease, chronic back pain Ht: 66in Wt: 187lb 07/17, 180lb 07/25 BMI: 30.3kg/m2 IBW: 130lb RD Assessment: (07/25) Chart reviewed. Pt was discussed during rounds. Visited pt in the room. Pt reports no change in nutrition status. Eating and drinking well. No GI complains noted. LBM 07/24. Will continue to monitor and follow. (07/18). Evaluated pt yesterday. No change in nutrition status. Diet education on vitamin K nutrition therapy has been provided. Will continue to monitor and follow. (07/17) Chart reviewed. Labs and meds reviewed. 78 yo F, who is admitted for pulmonary embolism. Visited pt in the room. Pt reports good appetite with 75-100% recorded PO intake. No GI complains noted. LBM 07/17. Pt denies any chewing or swallowing difficulty. No recent weight loss reported. Will continue to monitor and follow. Current Diet: cardiac diet Malnutrition Evaluation (07/17) The patient does not meet criteria for a specified degree of malnutrition at this time. Will re-evaluate at follow-up as appropriate. Diet Education Needs Assessment: Diet education indicated, pt is agreeable with plan. Learner(s): pt Barriers: none Cultural/Language Modifications: none Readiness: ready Method: handout, explanation Topics: Vitamin K nutrition therapy Understanding/Compliance: Pt understood. All questions have been answered. Nutrition Care Level: low Signed: Feli Portillo, MS, RD, LD
--- NOTE | 2018-07-25 16:15 | NUR ---
PATIENT OUT OF BED TO CHAIR COLORING HER BOOK, NO COMPLAIN VOICED. CALL LIGHT AT EASY REACH.
[2018-07-25] MEDS: WARFARIN SOD 5 MG TAB PO SCH (18:01)
--- NOTE | 2018-07-25 19:09 | NUR ---
RECEIVED PT RESTING IN BED WITH NO S/S OF DISTRESS.RESPIRATIONS EVEN/NON LABORED.PT ON HEPARIN INFUSION AT 1200 UNITS/HR.PTT DAILY PER PROTOCOL.INSTRUCTED PT TO CALL FOR ASSISTANCE NEEDED BY USING CALL LIGHT.PT VERBALIZED UNDERSTANDING.CALL LIGHT WITHIN EASY REACH.
[2018-07-25] MEDS: MONTELUKAST SODIUM 10 MG TAB PO SCH (20:43)
[2018-07-26 04:30] VITALS: BP 127/60
--- NOTE | 2018-07-26 07:02 | NUR ---
REPORT GIVEN TO ONCOMING NURSE,WALKING ROUNDS MADE.PT RESTING IN BED WITH NO S/S OF DISTRESS.
[2018-07-26 07:25] VITALS: BP 121/56
--- NOTE | 2018-07-26 07:25 | NUR ---
PATIENT ASSISTED TO THE RESTROOM AND BACK TO BED, NO RESPIRATORY DISTRESS OBSERVED. BED IN LOWER POSITION, CALL LIGHT AT REACH.
[2018-07-26] MEDS: PANTOPRAZOLE SOD 40 MG TABEC PO SCH (07:50)
[2018-07-26] MEDS: AMLODIPINE BESYLATE 10 MG TAB PO SCH (09:00)
[2018-07-26] MEDS: METOPROLOL SUCCINATE 50 MG TAB XL PO SCH (09:00)
[2018-07-26] MEDS: FLUTICASONE PROPIONATE NASAL SPRAY NS SCH (09:28)
[2018-07-26] MEDS: BETAMETHASONE DIP AUG 0.05% CRM 15 GM TUBE TOP SCH (09:29)
[2018-07-26] MEDS: LORATADINE/PSEUDOEPHEDRINE 24 HR SR TAB PO SCH (09:29)
[2018-07-26] MEDS: DESVENLAFAXINE SUCCINATE 50 MG TAB.SR.24H PO SCH (09:29)
[2018-07-26] MEDS: HYDROCHLOROTHIAZIDE 25 MG TAB PO SCH (09:29)
[2018-07-26] MEDS: OLMESARTAN 20 MG TAB PO SCH (09:29)
[2018-07-26 09:36] LABS: INR 2.07; PROTHROMBIN TIME 24.9 seconds (11.9-14.5)
[2018-07-26 10:19] VITALS: BP 121/56
[2018-07-26] MEDS ORDERED: WARFARIN SODIUM10 MG PO (10:28)
[2018-07-26] MEDS ORDERED: POTASSIUM CHLORIDE 20 MEQ TAB CR PO NR (10:45)
--- NOTE | 2018-07-26 11:30 | NUR ---
PATIENT HAS A DISCHARGE ORDER BUT STATED " I AM GOING TO MY DAUGHTER'S HOUSE, SHE WILL BE AVAILABLE TO PICC ME UP ONLY IN THE AFTERNOON". BED IN LOWER POSITION AND LOCKED, CALL LIGHT AT REACH.
[2018-07-26 12:00] VITALS: BP 121/59
--- NOTE | 2018-07-26 15:00 | NUR ---
PATIENT DISCHARGED HOME. DISCHARGE INSTRUCTIONS, PRESCRIPTIONS, AND FOLLOW UP GIVEN TO PATIENT, SHE VERBALIZED UNDERSTANDING. IV TO LEFT FOREARM REMOVED WITH TIP INTACT. ALL PERSONAL TAKEN WITH PATIENT, LEFT UNIT PER WHEEL CHAIR TO FRONT LOBBY IN STABLE CONDITION.
--- NOTE | 2018-07-26 21:11 | Discharge Summary ---
DISCHARGE DIAGNOSES 1. Bilateral pulmonary embolism. 2. Hypertension, controlled. 3. Psoriatic arthritis. HISTORY OF PRESENT ILLNESS/HOSPITAL COURSE: Ms. Lopez is a pleasant 78-year-old lady, patient of Dr. Calvillo, who has past medical history significant for psoriatic arthritis and hypertension. According to the patient, she experienced the sudden onset of severe dyspnea and near fainting sensation that began immediately after breakfast. At that time, she called her daughter and then called the EMS and she was brought to the emergency department where she was found to have bilateral pulmonary embolism. She was admitted to the intensive care unit. In spite of the findings, the patient was hemodynamically stable and she was started on unfractionated heparin drip and pulmonary consultation was requested. In addition to the pulmonary consultation, a consultation by hematology was requested to rule out the possibility of any significant thrombophilia condition. Patient was then started on warfarin initially at a dose of 5 mg per day. During her stay in the ICU, which was about 48 hours, patient was stable, did not experience any chest pain or any other complications. She was downgraded to the medical floor and kept on telemetry. She was found to be highly resistant to warfarin and the dose has been progressively increased after the current dosage 10 mg a day with which her INR is finally therapeutic at 2.0. Additional clinical workup included a venous Doppler, which was negative for deep vein thrombosis and a monitoring of her platelet levels, which did not change with the heparin drip. She has had no bleeding complications and she is being discharged home in stable condition. She is to resume her usual home medications and she is going home on 10 mg of warfarin daily. In 48 hours, she will go to the office for a pro-time check. Job#: [id number] ÓSCAR
== END 2018-07-26 14:50 | disposition home health service (06) | DRG 175 ==
LOC: ER 12:34 → ERHOLD 19:48 → ICU 20:28 → MED/SURG3 07-17 23:58
PROVIDERS: ADMIT Internal Medicine; ATTEND Internal Medicine
DX: I26.99 Other pulmonary embolism without acute cor pulmonale (principal); J96.00 Acute respiratory failure, unspecified whether with hypoxia or hypercapnia; I10 Essential (primary) hypertension; L40.50 Arthropathic psoriasis, unspecified; E78.5 Hyperlipidemia, unspecified; Z88.2 Allergy status to sulfonamides; Z88.8 Allergy status to other drugs, medicaments and biological substances; Z88.1 Allergy status to other antibiotic agents; Z91.041 Radiographic dye allergy status; J44.9 Chronic obstructive pulmonary disease, unspecified; I27.20 Pulmonary hypertension, unspecified
CPT/HCPCS: 36415; 71045; 71260; 80048; 80053; 81001; 82550; 82553; 83735; 83880; 84484; 85025; 85379; 85610; 85730; 87086; 93005; 93970; 94640; 96360; 96361; 96366; 99285; J1200; J1650; J7030; Q9967

== ENCOUNTER → 2019-02-25 | Outpatient (CLI) | payer MEDICARE, OTHER ==
[~2019-02-25] MED LIST changes: +ATENOLOL50 MG PO; +PEPPERMINT OIL PO; +WARFARIN SODIUM10 MG PO
--- NOTE | 2019-02-25 11:53 | Diagnostic Imaging Report ---
EXAM: CT Abdomen and Pelvis WITHOUT intravenous contrast INDICATION: Renal calculi COMPARISON: Report of CT abdomen pelvis of 08/15/2014 (images not available for review) TECHNIQUE: Abdomen and pelvis were scanned utilizing a multidetector helical scanner from the lung base to the pubic symphysis without administration of IV contrast. Coronal and sagittal reformations were obtained. IV CONTRAST: None ORAL CONTRAST: None COMPLICATIONS: None RADIATION DOSE: Total DLP: 726.7 mGy*cm Dose modulation, iterative reconstruction, and/or weight based adjustment of the mA/kV was utilized to reduce the radiation dose to as low as reasonably achievable. FINDINGS: LOWER THORAX: No focal consolidation at the lung bases. The heart is not enlarged. No pericardial effusion. HEPATOBILIARY: Diffuse hypoattenuation of hepatic parenchyma consistent with hepatic steatosis. No definite focal liver lesion. Status post cholecystectomy. SPLEEN: No splenomegaly. PANCREAS: No focal masses or ductal dilatation. ADRENALS: No adrenal nodules. KIDNEYS/URETERS: No hydronephrosis. Left lower pole 4 mm nonobstructive renal calculus. Right midpole 5 mm nonobstructing calculus. Again seen is an approximately 6 cm left lower pole renal cyst which contains a 2.5 x 2.5 cm hyperdense nodular component superiorly and a separate 7 mm hyperdense nodular component posteriorly. 3 cm soft tissue exophytic mass arising from the lower pole of the right kidney. Approximately 3.5 cm parapelvic right renal mass. PELVIC ORGANS/BLADDER: Unremarkable. PERITONEUM / RETROPERITONEUM: No free air or fluid. LYMPH NODES: No lymphadenopathy. VESSELS: Atherosclerotic calcifications of the nonaneurysmal abdominal aorta and major branches. GI TRACT: Extensive sigmoid diverticulosis with no CT evidence of diverticulitis. No abnormal bowel wall thickening. No bowel obstruction. BONES AND SOFT TISSUES: No acute fracture. Diffuse osteopenia. Focal levoconvex curvature of the lower lumbar spine. Moderate multilevel degenerative changes of the visualized spine. Grade 1 retrolisthesis at L3-4 and grade 1 anterolisthesis at L2-3. IMPRESSION: Bilateral renal cysts and masses as above are indeterminate and incompletely evaluated on this non-contrast CT scan. If there is concern for renal malignancy, recommend further evaluation with renal mass protocol CT. Bilateral nonobstructive renal calculi measuring up to 5mm on the right and 4mm on the left. Hepatic steatosis. Signed by: Tere Alaniz MD on 02/25/2019 11:50 AM
== END ==
LOC: CT 10:34
PROVIDERS: ATTEND Urology
DX: N20.0 Calculus of kidney (principal)
CPT/HCPCS: 74176

== ENCOUNTER → 2019-04-02 | Outpatient (CLI) | payer MEDICARE ==
--- NOTE | 2019-04-02 15:32 | Diagnostic Imaging Report ---
EXAM: CT Abdomen and Pelvis WITHOUT intravenous contrast INDICATION: Renal calculi, abdominal pain COMPARISON: Multiple prior CT abdomen and pelvis most recently of 02/25/2019 TECHNIQUE: Abdomen and pelvis were scanned utilizing a multidetector helical scanner from the lung base to the pubic symphysis without administration of IV contrast. Coronal and sagittal reformations were obtained. IV CONTRAST: None ORAL CONTRAST: None COMPLICATIONS: None RADIATION DOSE: Total DLP: 718.0 mGy*cm Dose modulation, iterative reconstruction, and/or weight based adjustment of the mA/kV was utilized to reduce the radiation dose to as low as reasonably achievable. FINDINGS: LOWER THORAX: Minimal bibasilar subsegmental atelectasis. No focal consolidation. HEPATOBILIARY: Diffuse hepatic steatosis. No focal liver lesions. Status post cholecystectomy. SPLEEN: No splenomegaly. PANCREAS: No focal masses or ductal dilatation. ADRENALS: No adrenal nodules. KIDNEYS/URETERS: No hydronephrosis. Unchanged left lower pole 4 mm nonobstructive renal calculus. No right renal calculi. Again seen is an approximately 6 cm left lower pole renal cyst which contains a 2.7 x 2.7 cm hyperdense nodular component superiorly which is slightly increased in size from 02/25/2019. 3.2 cm soft tissue exophytic mass arising from the lower pole of the right kidney also appears slightly increased in size. Approximately 3.5 cm parapelvic right renal mass. PELVIC ORGANS/BLADDER: Phleboliths in the pelvis. Focus of air in the anti-dependent bladder. PERITONEUM / RETROPERITONEUM: No free air or fluid. LYMPH NODES: No lymphadenopathy. VESSELS: Atherosclerotic calcifications of the nonaneurysmal abdominal aorta and major branches. GI TRACT: Extensive sigmoid diverticulosis with no CT evidence of diverticulitis. No abnormal bowel wall thickening. No bowel obstruction. BONES AND SOFT TISSUES: No acute fracture. Diffuse osteopenia. Focal levoconvex curvature of the lower lumbar spine. Moderate multilevel degenerative changes of the visualized spine. Grade 1 retrolisthesis at L3-4 and grade 1 anterolisthesis at L2-3. IMPRESSION: Bilateral renal cysts and masses as above, of which the exophytic right lower pole mass and nodular component of the dominant left lower pole cyst appear slightly increased in size compared to the prior study of 02/25/2019. These remain indeterminate on noncontrast imaging but are suspicious for possible malignancy. 4mm left nonobstructive renal calculus. Focus of air in the anti-dependent bladder. Please correlate with recent history of instrumentation. Signed by: Tere Alaniz MD on 04/02/2019 3:29 PM
== END ==
LOC: CT 13:29
PROVIDERS: ATTEND Urology
DX: N20.0 Calculus of kidney (principal)
CPT/HCPCS: 74176

== ENCOUNTER 2019-06-29 10:43 | Inpatient (IN) | payer MEDICARE ==
[2019-06-22 16:20] LABS: BASOPHILS % 0.6 % (0.0-1.0); EOSINOPHILS # (AUTO) 0.1 (0.0-0.4); EOSINOPHILS % 2.9 % (0.0-6.0); HEMATOCRIT 38.6 % (34.2-44.1); HEMOGLOBIN 12.1 g/dL (12.0-16.0); LYMPHOCYTES % 40.8 % (18.0-39.1); MEAN CORPUSCULAR HEMOGLOBIN 27.9 pg (28-32); MEAN CORPUSCULAR HGB CONC 31.3 g/dL (31-35); MEAN CORPUSCULAR VOLUME 89.1 fL (81-99); MONOCYTES # (AUTO) 0.5 (0.2-0.8); MONOCYTES % 9.5 % (4.4-11.3); NEUTROPHILS # (AUTO) 2.2 (2.1-6.9); PLATELET COUNT 250 x10e3/uL (140-360); RED BLOOD COUNT 4.33 x10e6/uL (3.6-5.1); RED CELL DISTRIBUTION WIDTH 13.4 % (11.7-14.4)
--- NOTE | 2019-06-22 16:40 | Diagnostic Imaging Report ---
EXAMINATION: CHEST 2 VIEWS INDICATION: Pre-operative COMPARISON: Chest CT of 07/15/2018 FINDINGS: LINES/TUBES:None LUNGS:The lungs are well-inflated. No focal consolidation or pulmonary edema. PLEURA:No pleural effusion or pneumothorax. MEDIASTINUM:The cardiomediastinal silhouette appears normal in size and shape. BONES/SOFT TISSUES:No acute osseous injury. ABDOMEN:No free air under the diaphragm. IMPRESSION: No focal pneumonia or pulmonary edema. Signed by: Tere Alaniz MD on 06/22/2019 4:36 PM
[2019-06-22 16:47] LABS: ANION GAP 11.8 mmol/L (8-16); BLOOD UREA NITROGEN 16 mg/dL (7-26); BUN/CREATININE RATIO 20 (6-25); CALCIUM 9.7 mg/dL (8.4-10.2); CARBON DIOXIDE 27 mmol/L (22-29); CHLORIDE 105 mmol/L (98-107); CREATININE, SERUM 0.82 mg/dL (0.57-1.11); EST GLOMERULAR FILTRATION RATE > 60 ML/MIN (60-); GLUCOSE 136 mg/dL (74-118); POTASSIUM 3.8 mmol/L (3.5-5.1); SODIUM 140 mmol/L (136-145)
[2019-06-29] VITALS (9 sets, daily range): BP systolic 146–162; BP diastolic 63–72
[~2019-06-29] VITALS: Ht 167.6 cm; Wt 86.4 kg
[~2019-06-29 10:43] MED LIST changes: +ACETAMINOPHEN325 M1 PO; +ACIDOPHILUS1 EAC4 PO; +AZOR 10-40 MG1 EACH PO; +CELEBREX100 MG PO; +CLOBETASOL1 EA/15 GM TOP; +COMBIVENT RESPIM4 GM IH; +COSENTYX P150 MG/11 INJ; +DIPHENHYDRAMINE25 M2 PO; +HYDROCHLOROTHIA25 MG PO; +NASONEX17 GM; +PEPPERMINT PO; +POTASSIUM CHLO10 ME1 PO; +QUESTRAN PACKET4 GM PO; +RESTASIS1 EACH OU; +SUPER B COMPLE1 EACH PEG; +XARELTO15 MG PO
--- OUTSIDE RECORDS SUMMARY | 2019-06-29 10:48 | XMS REPORT | Summary of Care ---
Author Author TIFFANIE Pickens, ROBERT Marlow Unknown Address Unknown Phone Unavailable Care Team Providers Care Seasonal Recruiter Name Role Phone TIFFANIE Pickens, ROBERT Unavailable Unavailable ELISA Pickens, SERENA Unavailable Unavailable JOSÉ MIGUEL Pickens, MARLENE Unavailable Unavailable NOLBERTO D.O., FLORENCE-JOSIE Unavailable Unavailable ASIF N.P., SURI Unavailable Unavailable OBONYANO N.P., KAELA Unavailable Unavailable TIFFANIE BEEBE, ROBERT Bernard Unavailable Unavailable ELISA BEEBE IA, SERENA Adam Unavailable Unavailable EUGENIO Pickens, OPAL Unavailable Unavailable EDDI BEEBE, DANGELOUSTAFA Unavailable Unavailable Carie BEEBE, Parrish Unavailable Unavailable EUGENIO BEEBE, OPAL S Unavailable Unavailable JOSÉ MIGUEL BEEBE IA, MARLENE Unavailable Unavailable LUCIANO BEEBE IA, TERRANCE Aguirre Unavailable Unavailable YEClement DO IA, FLORENCE-JOSIE Unavailable Unavailable Unavailable Unavailable Functional Status Name Dates Details Functional status health issues are not documented Status: Name Dates Details Cognitive status health issues are not documented Status: Problems Name Dates Details Knee pain (719.46, M25.569) Status: Active Intention tremor (333.1, G25.2) Status: Active Anal fissure (565.0, K60.2) Status: Active Vitamin D deficiency disease (268.9, E55.9) Status: Active Right shoulder tendinitis (726.10, M75.81) Status: Active Acute neck pain (723.1, M54.2) Status: Active Umbilical hernia (553.1, K42.9) Status: Active Lumbar degenerative disc disease (722.52, M51.36) Status: Active Allergic rhinitis (477.9, J30.9) Status: Active History of osteoarthritis (V13.4, Z87.39) Status: Active History of psoriasis (V13.3, Z87.2) Status: Active Elevated transaminase level (790.4, R74.0) Status: Active Screening for osteoporosis (V82.81, Z13.820) Status: Active Edema (782.3, R60.9) Status: Active Osteopenia (733.90, M85.80) Status: Active Lumbar spondylosis (721.3, M47.816) Status: Active Elderly person living alone (V60.3, Z60.2) Status: Active Right foot pain (729.5, M79.671) Status: Active Cramp in lower leg (729.82, R25.2) Status: Active Hemorrhoids, internal (455.0, K64.8) Status: Active Persistent dry cough (786.2, R05) Status: Active Dry eye syndrome (375.15, H04.129) Status: Active Back muscle spasm (724.8, M62.830) Status: Active Chronic pain of left knee (719.46, M25.562) Status: Active Chronic right shoulder pain (719.41, M25.511) Status: Active Low back pain (724.2, M54.5) Status: Active Right upper quadrant abdominal pain (789.01, R10.11) Status: Active Medicare annual wellness visit, subsequent (V70.0, Z00.00) Status: Active Advance directive discussed with patient (V65.49, Z71.89) Status: Active Breast cancer screening (V76.10, Z12.39) Status: Active At high risk for falls (V15.88, Z91.81) Status: Active Encounter for mini-mental status examination Status: Active Irritable bowel syndrome with both constipation and diarrhea (564.1, K58.2) Status: Active Depression, major, single episode, 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, 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 History of hyperlipidemia (V12.29, Z86.39) Status: Active Fatty liver (571.8, K76.0) Status: Active Balance problem (781.99, R26.89) Status: Active Acute bronchitis due to other specified organisms (466.0, J20.8) Status: Active Asthma (493.90, J45.909) Status: Active Encounter for monitoring of etanercept therapy (V58.83, Z51.81) Status: Active Right ear injury, initial encounter (959.09, S09.91XA) Status: Active Need for zoster vaccine (V04.89, Z23) Status: Active Tooth abscess (522.5, K04.7) Status: Active IBS (irritable bowel syndrome) (564.1, K58.9) Status: Active Lumbar spine painful on movement (724.2, M54.5) Status: Active Vertebral compression fracture (805.8, M48.50XA) Status: Active Lumbar nerve root compression (724.4, M54.16) Status: Active Hyperglycemia (790.29, R73.9) Status: Active GERD without esophagitis (530.81, K21.9) Status: Active Psoriatic arthropathy (696.0, L40.50) Status: Active Adalimumab (Humira) long-term use (V58.69, Z79.899) Status: Active Back pain (724.5, M54.9) Status: Active Pulmonary embolism (415.19, I26.99) Status: Active 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, 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) Status: Active Lumbar canal stenosis (724.02, M48.061) Status: Active Anxiety and depression (300.00, F41.9) Status: Active Hypertension (401.9, I10) Status: Active Vertigo (780.4, R42) Status: Active Stress (V62.89, F43.9) Status: Active Financial difficulties (V60.2, Z59.8) Status: Active NSAID long-term use (V58.64, Z79.1) Status: Active Elevated serum creatinine (790.99, R79.89) Status: Active 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 (NSAID) (V58.64, Z79.1) Status: Active Long-term use of immunosuppressant medication (V58.69, Z79.899) Status: Active Plaque psoriasis (696.1, L40.0) Status: Active 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, M15.9) Status: Active Need for prophylactic vaccination and inoculation against influenza (V04.81, Z23) Status: Active Acute URI (465.9, J06.9) Status: Active Aphthous ulcer (528.2, K12.0) Status: Active Medications Name Dates Details Desvenlafaxine Succinate ER 100 MG Oral Tablet Extended Release 24 Hour TAKE 1 TABLET BY MOUTH DAILY Quantity: 90 TIFFANIE Pickens ROBERT * Start : 05-Oct-2015 Active Fenofibric Acid 135 MG Oral Capsule Delayed Release TAKE ONE CAPSULE BY MOUTH DAILY * Quantity: 90 Refills: 1 TIFFANIE Pickens ROBERT * Start : 25-Jul-2017 Active Metoprolol Succinate ER 50 MG Oral [...] DAILY. * Quantity: 1 Refills: 1 Active Qsath-Kq-Tyrv TABS TAKE 1 TABLET DAILY * Refills: 0 Active diphenhydrAMINE HCl - 25 MG Oral Tablet TAKE [...] Refills: 0 * Start : 01-Feb-2015 Active Halobetasol Propionate 0.05 % External Ointment APPLY AND GENTLY MASSAGE INTO AFFECTED AREA(S) TWICE DAILY. * Refills: 0 Active Clobetasol Propionate 0.05 % External Solution APPLY AND GENTLY MASSAGE INTO AFFECTED AREA(S) TWICE DAILY. * Refills: 0 Active Rollator MISC Walker with 4 wheels and seat attachment-use as directed * Quantity: 1 Refills: 0 YEH D.O., FLORENCE-JOSIE * Start : 08-Mar-2015 Active Rollator MISC USE DIRECTED. * Quantity: 1 Refills: 0 YEH D.O., FLORENCE-JOSIE * Start : 08-Mar-2015 Active Loratadine TABS TAKE 1 TABLET DAILY NEEDED. * Refills: 0 Active Montelukast Sodium 10 MG Oral Tablet TAKE 1 TABLET DAILY * Refills: 0 Active Acidophilus CAPS TAKE 1 CAPSULE DAILY * Refills: 0 Active Super B Complex Maxi TABS TAKE 1 TABLET DAILY. * Refills: 0 Active Potassium Chloride ER 10 MEQ Oral Capsule Extended Release TAKE 1 CAPSULE DAILY PRN * Quantity: 90 Refills: 1 ROBERT MORENO M.D. * Start : 10-Aug-2017 Active Cholestyramine 4 GM Oral Packet MIX 1 PACKET WITH 2 TO 6 OUNCES OF NONCARBONATED BEVERAGE AND DRINK ONCE DAILY * Quantity: 90 Refills: 1 OBONYANO N.P.KAELA * Start : 27-Mar-2019 Active Combivent Respimat 20-100 MCG/ACT Inhalation Aerosol Solution INHALE 1 PUFF 4 TIMES DAILY (MAXIMUM OF 6 PUFFS IN 24 HOURS) * Refills: 0 * Start : 31-Dec-2017 Active 4 GM Inhaler Mometasone Furoate 50 MCG/ACT Nasal Suspension USE 2 SPRAYS IN EACH NOSTRIL ONCE DAILY * Refills: 0 * Start : 31-Dec-2017 Active 17 GM Inhaler Vitamin D3 50 MCG (2000 UT) Oral Capsule TAKE 1 CAPSULE DAILY * Refills: 0 * Start : 31-Dec-2017 Active Xarelto 20 MG Oral Tablet TAKE 1 TABLET DAILY * Quantity: 30 Refills: 0 ASIF N.P., SURI * Start : 27-Aug-2018 Active Omeprazole 20 MG Oral Capsule Delayed Release TAKE ONE CAPSULE BY MOUTH TWICE DAILY * Quantity: 180 Refills: 1 ROBERT MORENO M.D. * Start : 28-Aug-2018 Active Celecoxib 100 MG Oral Capsule TAKE 1 CAPSULE PO DAILY PRN JOINT PAIN. MAY TAKE IT BID IF NEEDED. * Quantity: 120 Refills: 1 JOSE VALDEZ M.D.OKClement Active Peppermint Oil CPDR TAKE 1 CAPSULE BEFORE EACH MEAL * Refills: 0 Active Cosentyx (300 MG Dose) 150 MG/ML Subcutaneous Solution Prefilled Syringe Inject 300 mg SC every 4 weeks. * Quantity: 1 Refills: 6 JAMALYARIA M.Maggy., FAROKH * Start : 23-Feb-2019 Active 2 x 1 ML Syringe guaiFENesin 400 MG Oral Tablet TAKE 1 TABLET DAILY * Refills: 0 Active Sinus Rinse Kit PACK NEILMED SINUS RINSE NEEDED * Refills: 0 Active amLODIPine-Olmesartan 10-40 MG Oral Tablet TAKE 1 TABLET BY MOUTH EVERY DAY * Quantity: 90 Refills: 0 ROBERT MORENO M.D. * Start : 04-Mar-2019 Active hydroCHLOROthiazide 12.5 MG Oral Capsule TAKE 1 CAPSULE EVERY OTHER DAY * Quantity: 30 Refills: 1 ELISA PickensSERENA * Start : 04-Mar-2019 Active tiZANidine HCl - 2 MG Oral Tablet TAKE 1 TABLET BY MOUTH EVERY EVENING NEEDED FOR NECK SPASM. MAY TAKE UP TO 3 TIMES DAILY NEEDED FOR SPASM * Quantity: 90 Refills: 0 JOSÉ MIGUEL Pickens MARLENE * Start : 27-Apr-2019 Active Oralone 0.1 % Mouth/Throat Paste APPLY SPARINGLY 3 TIMES A DAY * Quantity: 1 Refills: 3 ROBERT MORENO M.D. * Start : 04-May-2019 End : 12-May-2019 Active 5 GM Tube Allergies and Adverse Reactions Name Dates Details [...] (Allergy) Status: Active Iodinated Contrast Media (Allergy) Reaction: Itching, Rash Status: Active Meclizine HCl TABS (Allergy) Status: Active Omnicef (Allergy) Status: Active Otezla TABS (Allergy) Reaction: Diarrhea Status: Active Pseudoephedrine HCl TABS (Allergy) Reaction: Hypertension, Tachycardia Status: Active Robaxin (Allergy) Status: Active Shellfish-derived Products (Allergy) Reaction: Vomiting, Diarrhea Status: Active Soma Compound TABS (Allergy) Reaction: Other Status: Active Sulfa Drugs (Allergy) Status: Active [...] Quadrivalent 0.5 ML Intramuscular Suspension Lot #: [id number] on: 25-Apr-2015 Prevnar 13 Intramuscular Suspension Lot #: [id number] on: 25-Apr-2015 Fluzone High-Dose SUSP Lot #: [id number] on: 13-Apr-2016 Fluzone High-Dose 0.5 ML Intramuscular Suspension Prefilled Syringe Lot #: [id number] on: 13-May-2017 PPD, tuberculin skin test; purified protein derivative solution, intradermal on: 27-Nov-2017 Fluzone Quadrivalent 0.5 ML Intramuscular Suspension Prefilled Syringe on: 28-Apr-2018 Shingrix 50 MCG Intramuscular Suspension Reconstituted on: 27-Oct-2018 Shingrix 50 MCG Intramuscular Suspension Reconstituted on: 26-Jan-2019 Fluzone High-Dose 0.5 ML Intramuscular Suspension Prefilled Syringe Lot #: [id number] on: 27-Apr-2019 Family History Name Dates Details Family history of Diabetes (250.00, E11.9) Status: Active Family history of Ovarian cancer (183.0, C56.9) Status: Active Family history of Alzheimer's disease (V17.2, Z82.0) Status: Active Name Dates Details Family history of Alzheimer's disease (V17.2, Z82.0) Status: Active Social History Name Dates Details - Status: Name Dates Details Never smoker Vital Signs Date Test Result Details [id number] BP Systolic 155 mm[Hg] Status: Comments: Location: LUE; Position: Sitting BP Diastolic 74 mm[Hg] Status: Comments: Location: LUE; Position: Sitting Height 65.5 in Status: Weight 180.0625 lb Status: Body Mass Index Calculated 29.51 kg/m2 Status: Body Surface Area Calculated 1.9 m2 Status: Temperature 97.9 f Status: Comments: Method: Temporal Heart Rate 111 /min Status: Respiration Rate 16 /min Status: Physical Findings 0 Status: Comments: Pain Scale :17 BP Systolic 137 mm[Hg] Status: Comments: Location: LUE; Position: Sitting BP Diastolic 71 mm[Hg] Status: Comments: Location: LUE; Position: Sitting Heart Rate 85 /min Status: Respiration Rate 17 /min Status: :08 BP Systolic 146 mm[Hg] Status: Comments: Location: LUE; Position: Sitting BP Diastolic 69 mm[Hg] Status: Comments: Location: LUE; Position: Sitting Height 65.5 in Status: Weight 183 lb Status: Body Mass Index Calculated 29.99 kg/m2 Status: Body Surface Area Calculated 1.92 m2 Status: :39 BP Systolic 122 mm[Hg] Status: Comments: Position: Sitting BP Diastolic 73 mm[Hg] Status: Comments: Position: Sitting Heart Rate 84 /min Status: :38 BP Systolic 157 mm[Hg] Status: Comments: Position: Supine BP Diastolic 76 mm[Hg] Status: Comments: Position: Supine Heart Rate 82 /min Status: :12 BP Systolic 120 mm[Hg] Status: Comments: Location: LUE; Position: Sitting BP Diastolic 73 mm[Hg] Status: Comments: Location: LUE; Position: Sitting Height 65.5 in Status: Weight 181 lb Status: Body Mass Index Calculated 29.66 kg/m2 Status: Body Surface Area Calculated 1.91 m2 Status: Temperature 97 f Status: Comments: Method: Temporal Heart Rate 94 /min Status: Respiration Rate 16 /min Status: Results Date Description Value Details :26 [QLH] CMP W/EGFR GLUCOSE 123 mg/dl (Normal) Range: 65-139 Comments: Non-fasting reference interval UREA NITROGEN (BUN) 23 mg/dl (Normal) Range: 7-25 CREATININE 1.00 mg/dl (Above high threshold) Range: 0.60-0.93 Comments: For patients >49 years of age, the reference limitfor Creatinine is approximately 13% higher for peopleidentified as -Eth[place]ian. eGFR NON- 54 {ML/MIN/1.7} (Below low threshold) Range: > OR=60 eGFR 62 {ML/MIN/1.7} (Normal) Range: > OR=60 BUN/CREATININE RATIO 23 {CALC} (Above high threshold) Range: 6-22 SODIUM 142 mmol/L (Normal) Range: 135-146 POTASSIUM 3.9 mmol/L (Normal) Range: 3.5-5.3 CHLORIDE 109 mmol/L (Normal) Range: 98-110 CARBON DIOXIDE 25 mmol/L (Normal) Range: 20-32 CALCIUM 9.7 mg/dl (Normal) Range: 8.6-10.4 PROTEIN, TOTAL 6.5 g/dl (Normal) Range: 6.1-8.1 ALBUMIN 4.0 g/dl (Normal) Range: 3.6-5.1 GLOBULIN 2.5 {G/DL__CALC} (Normal) Range: 1.9-3.7 ALBUMIN/GLOBULIN RATIO 1.6 {CALC} (Normal) Range: 1.0-2.5 BILIRUBIN, TOTAL 0.3 mg/dl (Normal) Range: 0.2-1.2 ALKALINE PHSPHATASE 49 u/l (Normal) Range: 33-130 AST 19 u/l (Normal) Range: 10-35 ALT 18 u/l (Normal) Range: 6-29 [id number] [[facility]] CBC (INCLUDES DIFF/PLT) Comments: REPORT COMMENT:FASTING:NO WHITE BLOOD CELL COUNT 5.0 {Thousand/u} (Normal) Range: 3.8-10.8 RED BLOOD CELL COUNT 4.59 {Million/uL} (Normal) Range: 3.80-5.10 HEMAGLOBIN 13.0 g/dl (Normal) Range: 11.7-15.5 HEMATOCRIT 38.9 % (Normal) Range: 35.0-45.0 MCV 84.7 fL (Normal) Range: 80.0-100.0 MCH 28.3 pg (Normal) Range: 27.0-33.0 MCHC 33.4 g/dl (Normal) Range: 32.0-36.0 RDW 13.1 % (Normal) Range: 11.0-15.0 PLATELET COUNT 267 {Thousand/u} (Normal) Range: 140-400 MPV 11.0 fL (Normal) Range: 7.5-12.5 ABSOLUTE NEUTROPHILS 2385 {cells/uL} (Normal) Range: 6552-7129 ABSOLUTE LYMPHOCYTES 1880 {cells/uL} (Normal) Range: 850-3900 ABSOLUTE MONOCYTES 485 {cells/uL} (Normal) Range: 200-950 ABSOLUTE EOSINOPHILS 180 {cells/uL} (Normal) Range: 15-500 ABSOLUTE BASOPHILS 70 {cells/uL} (Normal) Range: 0-200 NEUTROPHILS 47.7 % (Normal) LYMPHOCYTES 37.6 % (Normal) MONOCYTES 9.7 % (Normal) EOSINOPHILS 3.6 % (Normal) BASOPHILS 1.4 % (Normal) Plan of Care Name Dates Details Planned Observations Planned Goals not documented Planned Encounters Appointment; CORONA VERDIN M.D. On: 15-Jun-2019 10:00 Appointment; ROBERT MORENO M.D. On: 17-Jul-2019 11:00 Appointment; MARLENE VALDEZ M.D. On: 24-Aug-2019 10:00 Appointment; Terrance Ross M.D. On: 01-Sep-2019 14:00 Interventions Provided Medication Changes* Oralone 0.1 % Mouth/Throat Paste - Start Instructions* Drink plenty of fluids while you are not feeling well.; To Be Done: 04 May 2019 * Irrigate your nose twice a day.; Done: 04 May 2019 * Rest for 1 hour at least 4 times during the day.; Done: 04 May 2019 Plan* rest and fluids * finish abx * f/u prn Instructions Name Dates Details Instructions not documented Encounters Appointment; MARLENE VALDEZ M.D. Encounter Diagnosis: Problem [...] Problem not documented On: 11-Dec-2017 10:00 Appointment; PARRISH MEZA M.D. Encounter Diagnosis: Problem not documented On: 31-Dec-2017 13:00 Appointment; LETTY BANKS Encounter Diagnosis: Problem not documented On: 08-Jan-2018 13:00 Appointment; PARRISH MEZA M.D. Encounter Diagnosis: Problem not documented On: 30-Jan-2018 15:45 Appointment; LETTY BANKS Encounter Diagnosis: Problem not documented On: 04-Feb-2018 15:00 Appointment; SURI ASIF NP Encounter Diagnosis: Problem not documented On: 13-Feb-2018 18:45 Appointment; ROBERT MORENO M.D. Encounter Diagnosis: Problem not documented On: 25-Feb-2018 10:45 Appointment; PARRISH MEZA M.D. Encounter Diagnosis: Problem not documented On: 05-Mar-2018 10:15 Appointment; MARLENE VALDEZ M.D. Encounter Diagnosis: Problem not documented On: 24-Jun-2018 13:00 Appointment; SURI ASIF NP Encounter Diagnosis: Problem not documented On: 27-Aug-2018 14:30 Appointment; PARRISH MEZA M.D. Encounter Diagnosis: Problem not documented On: 01-Sep-2018 10:45 Appointment; PARRISH MEZA M.D. Encounter Diagnosis: Problem not documented On: 01-Sep-2018 10:45 Appointment; ROBERT MORENO M.D. Encounter Diagnosis: Problem not documented On: 25-Sep-2018 13:00 Appointment; ROBERT MORENO M.D. Encounter Diagnosis: Problem not documented On: 18-Oct-2018 11:30 Appointment; MARLENE VALDEZ M.D. Encounter Diagnosis: Problem not documented On: 23-Oct-2018 10:00 Appointment; ROBERT MORENO M.D. Encounter Diagnosis: Problem not documented On: 27-Oct-2018 13:00 Appointment; Terrance Ross M.D. Encounter Diagnosis: Problem not documented On: 28-Oct-2018 14:15 Appointment; IZABELA ARVIZU D.O. Encounter Diagnosis: Problem not documented On: 08-Nov-2018 10:30 Appointment; PARRISH MEZA M.D. Encounter Diagnosis: Problem not documented On: 24-Nov-2018 15:45 Appointment; PARRISH MEZA M.D. Encounter Diagnosis: Problem not documented On: 02-Dec-2018 14:45 Appointment; MARLENE VALDEZ M.D. Encounter Diagnosis: Problem not documented On: 23-Dec-2018 14:00 Appointment; SERENA PÉREZ M.D. Encounter Diagnosis: Problem not documented On: 21-Jan-2019 11:00 Appointment; ROBERT MORENO M.D. Encounter Diagnosis: Problem not documented On: 27-Jan-2019 11:00 Appointment; MARLENE VALDEZ M.D. Encounter Diagnosis: Problem not documented On: 23-Feb-2019 14:00 Appointment; Terrance Ross M.D. Encounter Diagnosis: Problem not documented On: 27-Feb-2019 13:00 Appointment; SERENA PÉREZ M.D. Encounter Diagnosis: Problem not documented On: 04-Mar-2019 14:00 Appointment; ROBERT MORENO M.D. Encounter Diagnosis: Problem not documented On: 09-Mar-2019 11:00 Appointment; ROBERT MORENO M.D. Encounter Diagnosis: Problem not documented On: 17-Apr-2019 11:00 Appointment; MARLENE VALDEZ M.D. Encounter Diagnosis: Problem not documented On: 27-Apr-2019 14:00 Appointment; ROBERT MORENO M.D. Encounter Diagnosis: Problem not documented On: 04-May-2019 11:00
[2019-06-29] MEDS ORDERED: MEROPENEM 1GM 1 GM/100 ML BAG IV ONE (11:08)
[2019-06-29] MEDS ORDERED: AZITHROMYCIN250 MG PO (11:42)
[2019-06-29] MEDS ORDERED: HEPARIN SOD/SOD CHLORIDE 1,000 ML ONE (13:23)
[2019-06-29] MEDS ORDERED: MANNITOL 25% 12.5GM/50ML 50 ML ONE (14:43)
[2019-06-29] MEDS ORDERED: ONDANSETRON HCL INJ 2MG/ML 2ML 2 MG/ML VIAL IV PRN (16:30)
[2019-06-29] MEDS ORDERED: NALOXONE HCL INJ 0.4 MG/ML AMP IV PRN (16:30)
[2019-06-29] MEDS ORDERED: ACETAMINOPHEN 1000 MG/100 ML IV PRN (16:30)
[2019-06-29] MEDS: SODIUM CHLORIDE 0.9% 250ML IRRIG IR SCH ×2 (16:30→20:20)
[2019-06-29] MEDS ORDERED: FENTANYL CITRATE/PF 100MCG/2 ML INJ ONE ×2 (16:54→20:17)
[2019-06-29] MEDS ORDERED: MORPHINE SULFATE 1 MG/ML 30ML PCA ONE (16:57)
[2019-06-29 16:59] LABS: BASOPHILS % 0.4 % (0.0-1.0); EOSINOPHILS % 0.1 % (0.0-6.0); HEMATOCRIT 36.1 % (34.2-44.1); HEMOGLOBIN 11.2 g/dL (12.0-16.0); LYMPHOCYTES % 11.5 % (18.0-39.1); MEAN CORPUSCULAR HEMOGLOBIN 27.6 pg (28-32); MEAN CORPUSCULAR VOLUME 88.9 fL (81-99); MONOCYTES # (AUTO) 0.2 (0.2-0.8); MONOCYTES % 2.5 % (4.4-11.3); NEUTROPHILS # (AUTO) 7.6 (2.1-6.9); NEUTROPHILS % 84.9 % (38.7-80.0); PLATELET COUNT 228 x10e3/uL (140-360); RED BLOOD COUNT 4.06 x10e6/uL (3.6-5.1); RED CELL DISTRIBUTION WIDTH 13.4 % (11.7-14.4)
--- NOTE | 2019-06-29 17:09 | Diagnostic Imaging Report ---
Chest, portable AP view History: Pneumothorax Comparison: 06/22/2019 FINDINGS/IMPRESSION: The heart is within normal limits of size. Right IJ central venous catheter tip terminates in the mid SVC. Nasogastric tube is present with distal tip not imaged on this examination but well below the diaphragm. Right chest tube is in place. No pneumothorax is identified. Bibasilar atelectasis is present. No acute abnormalities. Signed by: Uli Carlisle MD on 06/29/2019 5:05 PM
[2019-06-29 17:15] LABS: ANION GAP 15.1 mmol/L (8-16); CALCIUM 8.4 mg/dL (8.4-10.2); CREATININE, SERUM 0.91 mg/dL (0.57-1.11); POTASSIUM 3.1 mmol/L (3.5-5.1)
--- NOTE | 2019-06-29 18:05 | NUR ---
Pt received to ICU 193. CT intact, appropriate set up, no leaks. SUSANNA drain compressed, intact. Dressing to right chest is C,D,I. Left nare NGT to low suction. 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 Pt lethargic, wakes easily, and speaking appropriately. No complications noted. Report given to Ana JESUS.
[2019-06-29] MEDS ORDERED: EPHEDRINE SULFATE INJ 50 MG/10 ML SYR ONE (18:58)
[2019-06-29] MEDS ORDERED: PROPOFOL IV EMULSION 10 MG/ML 20 ML VIAL ONE (18:58)
[2019-06-29] MEDS ORDERED: ROCURONIUM BROMIDE 10 MG/ML 5ML VIAL ONE (18:58)
[2019-06-29] MEDS ORDERED: SEVOFLURANE INHAL SOLN 250 ML PEN BTL ONE (18:58)
[2019-06-29] MEDS ORDERED: LIDOCAINE HCL 2% JELLY 5 ML TUBE ONE (18:58)
[2019-06-29] MEDS ORDERED: ONDANSETRON HCL INJ 2MG/ML 2ML 2 MG/ML VIAL ONE (18:58)
[2019-06-29] MEDS ORDERED: LIDOCAINE HCL 2% LOCAL INJ 5 ML SDV VIAL INJ ONE (18:58)
[2019-06-29] MEDS ORDERED: GLYCOPYRROLATE INJ 1MG/ 5 ML SYR ONE (18:58)
[2019-06-29] MEDS ORDERED: NEOSTIGMINE 5 MG/5ML SYR ONE (18:58)
[2019-06-29] MEDS ORDERED: DEXAMETHASONE SOD PHOS INJ 4 MG/ML VIAL ONE (18:58)
[2019-06-29] MEDS: D5.45%NS/KCL 20MEQ 1,000 ML IV SCH (20:07)
[2019-06-30] VITALS (25 sets, daily range): BP systolic 105–150; BP diastolic 48–70
[2019-06-30] MEDS: SODIUM CHLORIDE 0.9% 250ML IRRIG IR SCH ×6 (01:22→20:41)
[2019-06-30] MEDS: D5.45%NS/KCL 20MEQ 1,000 ML IV SCH ×3 (03:53→16:29)
[2019-06-30 04:26] LABS: BASOPHILS % 0.1 % (0.0-1.0); EOSINOPHILS # (AUTO) 0.1 (0.0-0.4); EOSINOPHILS % 1.4 % (0.0-6.0); HEMATOCRIT 36.2 % (34.2-44.1); HEMOGLOBIN 11.3 g/dL (12.0-16.0); LYMPHOCYTES % 10.3 % (18.0-39.1); MEAN CORPUSCULAR HEMOGLOBIN 27.8 pg (28-32); MEAN CORPUSCULAR HGB CONC 31.2 g/dL (31-35); MEAN CORPUSCULAR VOLUME 89.2 fL (81-99); MONOCYTES # (AUTO) 0.9 (0.2-0.8); MONOCYTES % 9.2 % (4.4-11.3); NEUTROPHILS # (AUTO) 7.6 (2.1-6.9); NEUTROPHILS % 78.7 % (38.7-80.0); PLATELET COUNT 209 x10e3/uL (140-360); RED BLOOD COUNT 4.06 x10e6/uL (3.6-5.1); RED CELL DISTRIBUTION WIDTH 13.7 % (11.7-14.4)
[2019-06-30 04:40] LABS: ANION GAP 13.5 mmol/L (8-16); CALCIUM 8.3 mg/dL (8.4-10.2); CREATININE, SERUM 0.98 mg/dL (0.57-1.11); POTASSIUM 3.5 mmol/L (3.5-5.1)
--- NOTE | 2019-06-30 06:40 | Diagnostic Imaging Report ---
EXAMINATION: CHEST SINGLE (PORTABLE) INDICATION: ^DAILY WHILE CHEST TUBE IN PLACE ^[id number] ^[id number] ^DAILY WHILE CHEST TUBE IN PLACE COMPARISON: 06/29/2019 FINDINGS: AP view TUBES and LINES: Stable NG tube, right IJ central line, and right apical chest tube. LUNGS: Lungs are well inflated. There is no evidence of pneumonia or pulmonary edema. PLEURA: No significant pleural effusion or pneumothorax. HEART AND MEDIASTINUM: The cardiomediastinal silhouette is unremarkable. BONES AND SOFT TISSUES: No acute osseous lesion. Soft tissues are unremarkable. UPPER ABDOMEN: No free air under the diaphragm. IMPRESSION: No significant interval change from prior exam. No visible pneumothorax. Signed by: Dr. Jacky Barber MD on 06/30/2019 6:36 AM
--- NOTE | 2019-06-30 09:04 | NUR ---
Called Dr Miller's office to notify of consult.
--- NOTE | 2019-06-30 09:04 | NUR ---
Called Dr Carnes's answering service to notify of consult.
[2019-06-30] MEDS ORDERED: CHLORASEPTIC SPRAY 177 ML BTL MM PRN (09:45)
[2019-06-30] MEDS: MORPHINE SULFATE 1 MG/ML 30ML PCA IV PRN (10:32)
--- NOTE | 2019-06-30 11:49 | NUR ---
Per Dr Jazmin Vasquez, do not downgrade from ICU and do not start Lovenox.
--- NOTE | 2019-06-30 12:25 | Consultation ---
DATE OF CONSULTATION: Pulmonary Critical Care Consultation REASON FOR CONSULT: Chest tube management. HISTORY OF PRESENT ILLNESS: Ms. Lopez is an 79-year-old female. She was admitted. She underwent right partial nephrectomy for renal mass by Dr. Vasquez and the patient is admitted to ICU after the procedure. She had a chest tube on the right side, which is placed postoperatively and it has mild drainage. No air leak. She denies any complaint of chest pain. She had some nausea and has a chest tube. REVIEW OF SYSTEMS: GENERAL: Denies any fever or chills. HEAD: Denies any head trauma. ENT: Denies any earache. CVS: Denies any chest pain. RESPIRATORY: Denies any shortness of breath. The rest of the review of systems are negative except as in HPI. PAST MEDICAL HISTORY: Psoriatic arthritis, mild asthma, diverticular disease, chronic back pain, and history of pulmonary embolism, which happened a year ago. She was admitted here at [facility] in June of 2018. She was started on anticoagulation at the time and was seen by Dr. Patel. FAMILY AND SOCIAL HISTORY: She does not smoke. Does not drink. PHYSICAL EXAMINATION: VITAL SIGNS: Temperature 99.3, pulse of 85, blood pressure 140/51, respiratory rate of 18, and O2 saturation 97% on 3 L. HEENT: Head is atraumatic and normocephalic. NECK: Supple. She has an NG tube. CHEST: Clear to auscultation bilaterally. No wheezing. HEART: S1 and S2 audible. ABDOMEN: Mildly tender. Right-sided chest tube. EXTREMITIES: No pedal edema. NEUROLOGIC: Awake and alert. No focal neurologic deficit. LABORATORY DATA: White count of 9000, hemoglobin of 11.3, and platelets 209. Chemistries within normal limits. ASSESSMENT/PLAN: Ms. Lopez is an 79-year-old female. She is electively admitted for nephrectomy. She underwent partial nephrectomy, has a chest tube, which has minimal drainage. No air leak. PLAN: 1. We will remove the chest tube once the drainage is reduced and no air leak. Chest x-ray reviewed. No visible pneumothorax. 2. She will be resumed on anticoagulation for PE once cleared by Urology. Thank you for this consult. Ewing Dirk, MD MF/AMANDA /[id number]
--- NOTE | 2019-06-30 17:35 | NUR ---
Dr Cavazos has given permission for patient to use her own cpap. Respiratory therapy has set her machine up at bedside.
--- NOTE | 2019-06-30 19:33 | NUR ---
Patient with elevated temp of 100.8 axillary, call placed for Dr. Yohana Vasquez, spoke with Ambrocio at answering service, awaiting return call
[2019-06-30] MEDS ORDERED: SODIUM CHLORIDE 0.9% 500ML 500 ML IV ONE (19:45)
[2019-06-30] MEDS ORDERED: ACETAMINOPHEN 1000 MG/100 ML IV PRN (19:45)
[2019-06-30] MEDS: MEROPENEM 500MG/ NS 50ML 50 ML IV SCH (20:41)
[2019-07-01] VITALS (28 sets, daily range): BP systolic 109–160; BP diastolic 48–80
[2019-07-01] MEDS: SODIUM CHLORIDE 0.9% 250ML IRRIG IR SCH ×6 (00:12→21:30)
[2019-07-01] MEDS: D5.45%NS/KCL 20MEQ 1,000 ML IV SCH ×4 (00:12→22:30)
[2019-07-01 05:08] LABS: BASOPHILS % 0.4 % (0.0-1.0); EOSINOPHILS % 0.4 % (0.0-6.0); HEMATOCRIT 34.6 % (34.2-44.1); HEMOGLOBIN 10.3 g/dL (12.0-16.0); LYMPHOCYTES # (AUTO) 1.1 (1.0-3.2); LYMPHOCYTES % 11.8 % (18.0-39.1); MEAN CORPUSCULAR HEMOGLOBIN 27.5 pg (28-32); MEAN CORPUSCULAR HGB CONC 29.8 g/dL (31-35); MEAN CORPUSCULAR VOLUME 92.5 fL (81-99); MONOCYTES # (AUTO) 0.8 (0.2-0.8); NEUTROPHILS # (AUTO) 7.6 (2.1-6.9); NEUTROPHILS % 78.8 % (38.7-80.0); PLATELET COUNT 186 x10e3/uL (140-360); RED BLOOD COUNT 3.74 x10e6/uL (3.6-5.1); RED CELL DISTRIBUTION WIDTH 14.1 % (11.7-14.4)
[2019-07-01 05:27] LABS: ANION GAP 11.6 mmol/L (8-16); CALCIUM 8.3 mg/dL (8.4-10.2); CREATININE, SERUM 1.09 mg/dL (0.57-1.11); POTASSIUM 3.6 mmol/L (3.5-5.1)
--- NOTE | 2019-07-01 08:06 | Diagnostic Imaging Report ---
Examination: Single AP view of the chest. COMPARISON: 06/30/2019 INDICATION: Chest tube DISCUSSION: Enteric tube, right internal jugular central venous catheter, and right apical chest tube are unchanged in position. No pneumothorax. The lungs remain grossly clear without consolidation or effusion. Skin folds project over the bilateral chest mendoza. Stable cardiomediastinal contour without overt pulmonary edema. No acute osseous abnormality. Right flank/right upper quadrant surgical clips partially visualized. IMPRESSION: Stable position of support lines and tubes. No pneumothorax or new consolidations. Signed by: Dr. Jluis Bucio M.D. on 07/01/2019 8:02 AM
[2019-07-01] MEDS: MORPHINE SULFATE 1 MG/ML 30ML PCA IV PRN (08:30)
[2019-07-01] MEDS: MEROPENEM 500MG/ NS 50ML 50 ML IV SCH ×2 (09:47→21:53)
[2019-07-01] MEDS ORDERED: MORPHINE SULFATE 1 MG/ML 30ML PCA IV PRN (14:15)
--- NOTE | 2019-07-01 16:27 | Diagnostic Imaging Report ---
Chest, 1 view, 07/01/2019. History: Chest tube removal. Comparison: X-ray from earlier today. Findings: The cardiomediastinal silhouette and pulmonary vasculature are within normal limits for a portable exam. There is no focal consolidation or pleural effusion. There is no evidence of pneumothorax. Right-sided chest tube is no longer seen. NG tube and right IJ central line are unchanged in position. There are no acute osseous or soft tissue abnormalities. Impression: No evidence of pneumothorax post right chest tube removal. Signed by: Rommel Alegre on 07/01/2019 4:23 PM
[2019-07-01] MEDS ORDERED: FUROSEMIDE INJ 10 MG/ML 2 ML VIAL IV ONE (17:15)
--- NOTE | 2019-07-01 17:54 | NUR ---
PATIENT OUT OF BED TO CHAIR TWICE TODAY. AMBULATED WITH PHYSICAL THERAPY. RIGHT FLANK CHEST TUBE DISCONTINUED. POST OP CHEST XRAY NEG FOR PNEUMO. BASAL RATE DISCONTINUED ON FOOD CHECKERS AND CASHIERS SUPERVISOR. PATIENT EDUCATED ABOUT USE AND VERBALIZED UNDERSTANDING.
[2019-07-02] VITALS (24 sets, daily range): BP systolic 109–138; BP diastolic 42–95
[2019-07-02] MEDS: SODIUM CHLORIDE 0.9% 250ML IRRIG IR SCH ×6 (01:00→20:00)
[2019-07-02 05:03] LABS: BASOPHILS % 0.4 % (0.0-1.0); EOSINOPHILS # (AUTO) 0.1 (0.0-0.4); EOSINOPHILS % 1.2 % (0.0-6.0); HEMATOCRIT 33.1 % (34.2-44.1); HEMOGLOBIN 9.9 g/dL (12.0-16.0); LYMPHOCYTES # (AUTO) 1.2 (1.0-3.2); LYMPHOCYTES % 15.9 % (18.0-39.1); MEAN CORPUSCULAR HEMOGLOBIN 27.4 pg (28-32); MEAN CORPUSCULAR HGB CONC 29.9 g/dL (31-35); MEAN CORPUSCULAR VOLUME 91.7 fL (81-99); MONOCYTES # (AUTO) 0.5 (0.2-0.8); MONOCYTES % 6.5 % (4.4-11.3); NEUTROPHILS # (AUTO) 5.6 (2.1-6.9); NEUTROPHILS % 75.6 % (38.7-80.0); PLATELET COUNT 183 x10e3/uL (140-360); RED BLOOD COUNT 3.61 x10e6/uL (3.6-5.1); RED CELL DISTRIBUTION WIDTH 13.7 % (11.7-14.4)
[2019-07-02 05:27] LABS: ANION GAP 10.5 mmol/L (8-16); CALCIUM 8.7 mg/dL (8.4-10.2); CREATININE, SERUM 0.97 mg/dL (0.57-1.11); POTASSIUM 3.5 mmol/L (3.5-5.1)
[2019-07-02] MEDS: D5.45%NS/KCL 20MEQ 1,000 ML IV SCH ×3 (07:03→23:50)
[2019-07-02] MEDS: MUPIROCIN 2% OINT 22 GM TUBE TOP SCH (07:10)
--- NOTE | 2019-07-02 08:15 | Diagnostic Imaging Report ---
Chest, portable AP view History: Status post chest tube removal Comparison: 07/01/2019 IMPRESSION: The heart is within normal limits of size. Right IJ central venous catheter tip terminates in the distal SVC. Nasogastric tube is present with tip not imaged on this examination but well below the diaphragm. There is mild bibasilar atelectasis. No sizable pleural effusion. No pneumothorax. Signed by: Uli Carlisle MD on 07/02/2019 8:12 AM
[2019-07-02] MEDS ORDERED: POTASSIUM CHLORIDE 20MEQ/100ML 100 ML IV ONE (09:30)
[2019-07-02] MEDS: MEROPENEM 500MG/ NS 50ML 50 ML IV SCH ×2 (09:55→20:51)
--- NOTE | 2019-07-02 14:27 | NUR ---
PATIENT AMBULATED IN HALLWAY WITH PHYSICAL THERAPY Addendum: 07/02/19 at 1510 by Bhavani Pittman RN patient requested to go back to bed
[2019-07-02] MEDS ORDERED: BISACODYL 10 MG SUPP PR ONE (20:30)
[2019-07-03] VITALS (8 sets, daily range): BP systolic 127–163; BP diastolic 48–68
[2019-07-03] MEDS: SODIUM CHLORIDE 0.9% 250ML IRRIG IR SCH ×6 (00:30→20:30)
[2019-07-03 05:07] LABS: BASOPHILS % 0.5 % (0.0-1.0); EOSINOPHILS # (AUTO) 0.3 (0.0-0.4); EOSINOPHILS % 4.4 % (0.0-6.0); HEMOGLOBIN 9.4 g/dL (12.0-16.0); LYMPHOCYTES # (AUTO) 1.4 (1.0-3.2); LYMPHOCYTES % 22.9 % (18.0-39.1); MEAN CORPUSCULAR HEMOGLOBIN 26.9 pg (28-32); MEAN CORPUSCULAR HGB CONC 29.4 g/dL (31-35); MEAN CORPUSCULAR VOLUME 91.7 fL (81-99); MONOCYTES # (AUTO) 0.5 (0.2-0.8); MONOCYTES % 8.1 % (4.4-11.3); NEUTROPHILS # (AUTO) 3.8 (2.1-6.9); NEUTROPHILS % 63.8 % (38.7-80.0); PLATELET COUNT 190 x10e3/uL (140-360); RED BLOOD COUNT 3.49 x10e6/uL (3.6-5.1); RED CELL DISTRIBUTION WIDTH 13.5 % (11.7-14.4)
[2019-07-03 05:29] LABS: ANION GAP 9.6 mmol/L (8-16); CALCIUM 8.5 mg/dL (8.4-10.2); CARBON DIOXIDE 26 mmol/L (22-29); CHLORIDE 108 mmol/L (98-107); CREATININE, SERUM 0.78 mg/dL (0.57-1.11); EST GLOMERULAR FILTRATION RATE > 60 ML/MIN (60-); GLUCOSE 131 mg/dL (74-118); POTASSIUM 3.6 mmol/L (3.5-5.1); SODIUM 140 mmol/L (136-145)
[2019-07-03 06:53] LABS: BLOOD UREA NITROGEN 11 mg/dL (7-26); BUN/CREATININE RATIO 14 (6-25)
--- NOTE | 2019-07-03 08:13 | Diagnostic Imaging Report ---
Chest, portable AP view History: Pneumothorax Comparison: 07/02/2019 IMPRESSION: The heart is within normal limits size. Right IJ central venous catheter tip terminates in the SVC. Nasogastric tube is present with tip well below the diaphragm. There is minimal bibasilar atelectasis. No focal consolidation, pleural effusion, or pneumothorax. Signed by: Uli Carlisle MD on 07/03/2019 8:09 AM
[2019-07-03] MEDS: MEROPENEM 500MG/ NS 50ML 50 ML IV SCH ×2 (08:32→21:53)
[2019-07-03] MEDS: D5.45%NS/KCL 20MEQ 1,000 ML IV SCH ×2 (08:32→15:22)
[2019-07-03] MEDS: MUPIROCIN 2% OINT 22 GM TUBE TOP SCH (08:32)
[2019-07-03] MEDS ORDERED: POTASSIUM CHLORIDE 20MEQ/100ML 100 ML IV ONE (09:00)
--- NOTE | 2019-07-03 14:07 | NUR ---
Report given to Olya JESUS for Room 111.
[2019-07-03] MEDS ORDERED: ONDANSETRON HCL 4 MG ORAL DISINTEGRATING TAB PO PRN ×2 (14:45)
[2019-07-03] MEDS ORDERED: BISACODYL 10 MG SUPP PR ONE (15:15)
[2019-07-04] VITALS (7 sets, daily range): BP systolic 148–184; BP diastolic 64–73
[2019-07-04] MEDS: SODIUM CHLORIDE 0.9% 250ML IRRIG IR SCH ×2 (00:03→04:30)
[2019-07-04 06:27] LABS: ANION GAP 9.7 mmol/L (8-16); BLOOD UREA NITROGEN 8 mg/dL (7-26); BUN/CREATININE RATIO 11 (6-25); CALCIUM 8.4 mg/dL (8.4-10.2); CARBON DIOXIDE 26 mmol/L (22-29); CHLORIDE 107 mmol/L (98-107); CREATININE, SERUM 0.76 mg/dL (0.57-1.11); EST GLOMERULAR FILTRATION RATE > 60 ML/MIN (60-); GLUCOSE 109 mg/dL (74-118); POTASSIUM 3.7 mmol/L (3.5-5.1); SODIUM 139 mmol/L (136-145)
--- NOTE | 2019-07-04 07:29 | NUR ---
Received patient this morning, a/ox3, in bed with HARDWOOD FLOOR INSTALLATION HELPER in place, pains well managed, call light within reach, will monitor.
--- NOTE | 2019-07-04 07:51 | NUR ---
GAVE REPORT TO ONCOMING NURSE. CALL LIGHT WITHIN REACH. PATIENT IN BED.
--- NOTE | 2019-07-04 08:56 | NUR ---
Patient OOB to chair and had breakfast clear liquid, nausea and medicated with zofran and will monitor.
[2019-07-04] MEDS: D5.45%NS/KCL 20MEQ 1,000 ML IV SCH ×2 (08:58→16:21)
[2019-07-04] MEDS: MEROPENEM 500MG/ NS 50ML 50 ML IV SCH ×2 (08:58→21:05)
--- NOTE | 2019-07-04 09:27 | NUR ---
Call to Dr. Vasquez, orders to d/c POT HOLDER BINDER morphine, start PRN pain management, remains on clear, colace ordered, decreased IV fluids to 75cc/hour, will monitor.
[2019-07-04] MEDS ORDERED: MORPHINE SULFATE 2 MG/ML SYR 1ML IV PRN (09:30)
[2019-07-04] MEDS: MUPIROCIN 2% OINT 22 GM TUBE TOP SCH (09:36)
[2019-07-04] MEDS: TRAMADOL HCL 50 MG TAB PO PRN (10:33)
--- NOTE | 2019-07-04 10:33 | NUR ---
Patient OOB and ambulated about 200 feet with staff and PT, back to bed and pains well controlled.
--- NOTE | 2019-07-04 12:04 | NUR ---
Nutrition Screen Note RD Recommendation for Physician: Advance diet as tolerated when medically feasible Plan of Care: RD following, monitoring for tolerance and adequacy Nutrition reason for involvement: LOS Primary Diagnose(s): Renal mass PMH:diverticulosis, Ht: 66in Wt:32lb BMI:198.06 kg/m2 IBW:130lb +/-10% RD Assessment: (07/04/19) Chart reviewed. Labs and meds reviewed. Initial encounter with patient. Pt is on a clear liquid diet and is ready to eat solid foods. Scheduled surgery has been on hold. Pt wears dentures and denies any difficulty chewing or swallowing. Pt is nauseated. Pt denies any significant wt changes. Pt is allergic to shellfish and does not drink coffee due feeling jittery. Good Po intake DIRECTOR VACCINE. Current Diet: Clear liquid Malnutrition Evaluation 07/04/19) The patient does not meet criteria for a specified degree of malnutrition at this time. Will re-evaluate at follow-up as appropriate. Diet Education Needs Assessment: Diet education not indicated. Nutrition Care Level: Low Signed: Madhav Meek RD, LD, [facility]
--- NOTE | 2019-07-04 14:44 | Diagnostic Imaging Report ---
Exam: KUB -one view Clinical History: Abdominal bloating. Comparison: CT abdomen/pelvis 04/02/2019. Findings/Impression: Nonobstructive bowel gas pattern. No evidence of free intraperitoneal air. Air is seen throughout the colon and rectum. Surgical clips in the right upper quadrant. Linear hyperdensity in the left upper quadrant may represent surgical clip versus enteric contents. Surgical karely in the right upper quadrant. Surgical drain overlies the right mid abdomen. Calcified pelvic phleboliths. Degenerative changes of the visualized spine. Signed by: Dr. Irwin Zarate MD on 07/04/2019 2:40 PM
--- NOTE | 2019-07-04 16:06 | NUR ---
Spoke with Dr. Vasquez and alice to restart Xarelto and to order CBC and BMP tomorrow
[2019-07-04] MEDS: RIVAROXABAN 15 MG TABLET PO SCH (17:00)
[2019-07-04] MEDS: OLMESARTAN 20 MG TAB PO SCH (17:00)
[2019-07-04] MEDS: DOCUSATE SODIUM 100 MG CAP PO SCH (17:00)
[2019-07-04] MEDS: AMLODIPINE BESYLATE 10 MG TAB PO SCH (17:00)
[2019-07-04] MEDS: METOPROLOL SUCCINATE 50 MG TAB XL PO SCH (17:01)
[2019-07-04] MEDS: ACETAMINOPHEN 325 MG TAB PO SCH (17:02)
--- NOTE | 2019-07-04 17:03 | NUR ---
Patient's BP elevated, 9pm BP meds given at this time, pains well controlled, SUSANNA drain with 25cc output, KUB negative for obstruction, call light within reach, nausea resolved, tolerating clear liquid diet, will monitor
[2019-07-04] MEDS: PANTOPRAZOLE SOD 40 MG TABEC PO SCH (21:20)
[2019-07-05] VITALS (8 sets, daily range): BP systolic 141–184; BP diastolic 64–74
[2019-07-05] MEDS: D5.45%NS/KCL 20MEQ 1,000 ML IV SCH ×3 (00:22→21:41)
[2019-07-05 05:44] LABS: EOSINOPHILS # (AUTO) 0.2 (0.0-0.4); EOSINOPHILS % 4.6 % (0.0-6.0); HEMATOCRIT 29.3 % (34.2-44.1); HEMOGLOBIN 9.1 g/dL (12.0-16.0); LYMPHOCYTES # (AUTO) 1.1 (1.0-3.2); LYMPHOCYTES % 28.1 % (18.0-39.1); MEAN CORPUSCULAR HEMOGLOBIN 27.7 pg (28-32); MEAN CORPUSCULAR HGB CONC 31.1 g/dL (31-35); MEAN CORPUSCULAR VOLUME 89.3 fL (81-99); MONOCYTES # (AUTO) 0.4 (0.2-0.8); MONOCYTES % 11.3 % (4.4-11.3); NEUTROPHILS # (AUTO) 2.1 (2.1-6.9); NEUTROPHILS % 54.5 % (38.7-80.0); PLATELET COUNT 186 x10e3/uL (140-360); RED BLOOD COUNT 3.28 x10e6/uL (3.6-5.1); RED CELL DISTRIBUTION WIDTH 13.1 % (11.7-14.4)
[2019-07-05] MEDS: ACETAMINOPHEN 325 MG TAB PO SCH ×4 (06:00→17:13)
[2019-07-05 06:08] LABS: ANION GAP 11.8 mmol/L (8-16); BLOOD UREA NITROGEN 7 mg/dL (7-26); BUN/CREATININE RATIO 10 (6-25); CALCIUM 8.7 mg/dL (8.4-10.2); CARBON DIOXIDE 26 mmol/L (22-29); CHLORIDE 109 mmol/L (98-107); CREATININE, SERUM 0.72 mg/dL (0.57-1.11); EST GLOMERULAR FILTRATION RATE > 60 ML/MIN (60-); GLUCOSE 118 mg/dL (74-118); POTASSIUM 3.8 mmol/L (3.5-5.1); SODIUM 143 mmol/L (136-145)
[2019-07-05] MEDS ORDERED: PANTOPRAZOLE SOD 40 MG TABEC PO SCH (07:30)
[2019-07-05] MEDS: PANTOPRAZOLE SOD 40 MG TABEC PO SCH (07:30)
--- NOTE | 2019-07-05 07:30 | NUR ---
Received patient, in bed, a/ox3, c/o pain right flank, will medicate, call light within reach
[2019-07-05] MEDS: DOCUSATE SODIUM 100 MG CAP PO SCH ×2 (08:22→17:13)
[2019-07-05] MEDS: MEROPENEM 500MG/ NS 50ML 50 ML IV SCH ×2 (08:22→20:35)
[2019-07-05] MEDS: MUPIROCIN 2% OINT 22 GM TUBE TOP SCH (08:23)
[2019-07-05] MEDS: DESVENLAFAXINE SUCCINATE 50 MG TAB.SR.24H PO SCH (08:23)
[2019-07-05] MEDS: Levocetirizine Dihydrochloride 5 MG PO SCH (08:23)
[2019-07-05] MEDS: TRAMADOL HCL 50 MG TAB PO PRN (08:24)
--- NOTE | 2019-07-05 08:36 | NUR ---
Patient medicated for pain, rounds by Dr. Will to advance diet to regular, patient has small liquid stool, assisted to the bathroom and then went for walk, no c/o nausea, medicated for pain, no resp distress, continues on abx, sitting on chair, will monitor.
--- NOTE | 2019-07-05 08:38 | NUR ---
Orders per Dr. Will to advance diet to regular
--- NOTE | 2019-07-05 11:22 | NUR ---
Call to Dr. Miller regarded elevated BP, waiting for call back
--- NOTE | 2019-07-05 11:36 | NUR ---
rounds by Dr. Cavazos and orders for Hydralazine 10mg IV x1 for elevated bp
--- NOTE | 2019-07-05 12:16 | NUR ---
Patient had lunch regular meal and tolerated well, Incision to right flank area intact, SUSANNA draining with minimal drainage, will monitor.
[2019-07-05] MEDS ORDERED: HYDRALAZINE HCL 20 MG/ML VIAL IV ONE (12:30)
[2019-07-05] MEDS: AMLODIPINE BESYLATE 10 MG TAB PO SCH (15:50)
[2019-07-05] MEDS: RIVAROXABAN 15 MG TABLET PO SCH (17:13)
[2019-07-05] MEDS: OLMESARTAN 20 MG TAB PO SCH (20:35)
[2019-07-05] MEDS: METOPROLOL SUCCINATE 50 MG TAB XL PO SCH (20:35)
[2019-07-05] MEDS: TRIAMCINOLONE 0.1% DENTAL PASTE 0.18 OZ TUBE DT SCH (21:30)
[2019-07-06] VITALS (10 sets, daily range): BP systolic 148–175; BP diastolic 67–81
[2019-07-06] MEDS: ACETAMINOPHEN 325 MG TAB PO SCH ×4 (05:29→18:33)
[2019-07-06] MEDS: PANTOPRAZOLE SOD 40 MG TABEC PO SCH (08:05)
[2019-07-06] MEDS: MUPIROCIN 2% OINT 22 GM TUBE TOP SCH (08:06)
[2019-07-06] MEDS: MEROPENEM 500MG/ NS 50ML 50 ML IV SCH ×2 (08:06→21:30)
[2019-07-06] MEDS: Levocetirizine Dihydrochloride 5 MG PO SCH (08:06)
[2019-07-06] MEDS: DOCUSATE SODIUM 100 MG CAP PO SCH ×2 (08:06→18:33)
[2019-07-06] MEDS: DESVENLAFAXINE SUCCINATE 50 MG TAB.SR.24H PO SCH (08:06)
[2019-07-06] MEDS: D5.45%NS/KCL 20MEQ 1,000 ML IV SCH (08:26)
--- NOTE | 2019-07-06 08:53 | NUR ---
SUSANNA drain dc'd at this time per Dr. Vasquez's order. Pt tolerated well, 10cc of dark red blood collected in bulb. Site covered with sterile 4x4 gauze and tape.
[2019-07-06] MEDS ORDERED: BISACODYL 10 MG SUPP PR ONE (09:20)
--- NOTE | 2019-07-06 12:23 | NUR ---
EDUCATED ABOUT IMM, SIGNED, FILED IN CHART, WITH COPY LEFT WITH FAMILY AT BEDSIDE.
--- NOTE | 2019-07-06 12:24 | NUR ---
SPOKE WITH PT AND DAUGHTER ON LAST SATURDAY ABOUT FACILITIES IN NETWORK, DAUGHTER WANTS TO BE KEPT IN LOOP ABOUT ALL DECISIONS AND THE PT REQUESTED THAT SHE BE UPDATED. FAXED CLINICALS TO [facility] WITH PERMISSION.
[2019-07-06] MEDS: NYSTATIN SUSPENSION 5 ML UDC PO SCH ×3 (13:17→21:30)
[2019-07-06] MEDS: TRIAMCINOLONE 0.1% DENTAL PASTE 0.18 OZ TUBE DT SCH ×2 (13:17→16:34)
--- NOTE | 2019-07-06 14:16 | NUR ---
THIS IS THE PT THAT CLINICALS WERE SUBMITTED TO INSURANCE AND WAS CANCELLED BY DEJON FOR PLACEMENT ON SATURDAY DUE TO THE PATIENT NOT BEING READY, SPOKE WITH [facility] AND WAS INFORMED CLINICALS WERE RESUBMITTED THIS MORNING AND NOW WAITING ON [facility].
[2019-07-06] MEDS: RIVAROXABAN 15 MG TABLET PO SCH (18:33)
[2019-07-06] MEDS: OLMESARTAN 20 MG TAB PO SCH (21:30)
[2019-07-06] MEDS: AMLODIPINE BESYLATE 10 MG TAB PO SCH (21:30)
[2019-07-06] MEDS: METOPROLOL SUCCINATE 50 MG TAB XL PO SCH (21:30)
[2019-07-07] VITALS: BP 159/79
[2019-07-07] MEDS: D5.45%NS/KCL 20MEQ 1,000 ML IV SCH ×3 (00:34→13:41)
[2019-07-07 04:05] VITALS: BP 160/80
[2019-07-07] MEDS: ACETAMINOPHEN 325 MG TAB PO SCH ×3 (05:15→13:00)
[2019-07-07] MEDS: NYSTATIN SUSPENSION 5 ML UDC PO SCH ×3 (05:15→14:00)
--- NOTE | 2019-07-07 07:45 | NUR ---
CONTACTED BUILDING FOR A UPDATE, STILL PENDING AUTH FROM [employer]
[2019-07-07 08:05] VITALS: BP 161/89
--- NOTE | 2019-07-07 08:15 | NUR ---
RECEIVED CALL FROM TRELL FROM [facility] STATING THEY ARE OFFERING A PEER TO PEER FOR THIS PATIENT, DOCTOR NEEDS TO CALL [phone] AND [facility] [address] MENDOZA BEFORE NOON TODAY.
[2019-07-07] MEDS: PANTOPRAZOLE SOD 40 MG TABEC PO SCH (08:30)
[2019-07-07 08:53] VITALS: BP 161/89
[2019-07-07] MEDS: Levocetirizine Dihydrochloride 5 MG PO SCH (09:00)
[2019-07-07] MEDS: TRIAMCINOLONE 0.1% DENTAL PASTE 0.18 OZ TUBE DT SCH ×2 (09:00→15:00)
--- NOTE | 2019-07-07 09:13 | NUR ---
CALLED DR PÉREZ OFFICE AND SPOKE WITH MARK TO GIVE INFORMATION ON PEER TO PEER, AND SPOKE WITH HIM WHEN HE CAME TO DO ROUNDS AND DECLINED TO DO "WHAT HAPPENS IF I SAY NO, SHE WILL HAVE TO STAY HERE FOR THE TIME". ASKED DR REECE IF HE WILL DO, HE WILL LET ME KNOW THE OUTCOME.
--- NOTE | 2019-07-07 09:50 | NUR ---
DR REECE COMPLETED THE PEER TO PEER, NOTIFIED THE FACILITY, WAITING ON THE STATUS TO CHANGE ON THEIR SIDE THEN WILL GIVE A BED.
[2019-07-07] MEDS: DOCUSATE SODIUM 100 MG CAP PO SCH (10:00)
[2019-07-07] MEDS: MUPIROCIN 2% OINT 22 GM TUBE TOP SCH (10:00)
[2019-07-07] MEDS: MEROPENEM 500MG/ NS 50ML 50 ML IV SCH (10:00)
[2019-07-07] MEDS: DESVENLAFAXINE SUCCINATE 50 MG TAB.SR.24H PO SCH (10:00)
[2019-07-07 11:33] VITALS: BP 157/73
--- NOTE | 2019-07-07 11:47 | NUR ---
ASSISTED FACILITY DISCHARGE INFORMATION PATIENT HAS BEEN ACCEPTED TO: NAME: [facility] ADDRESS:[id number] [place] MD: NELI ROOM: 113 NURSE CALL REPORT TO: [phone] IMM SIGNED AND OBTAINED (if applicable): YES THE FOLLOWING DOCUMENTS MUST ACCOMPANY PATIENT FOR TRANSFER: COPIED CHART: CLINICALS AND PASRR
--- NOTE | 2019-07-07 12:46 | NUR ---
PT OOB WITH STANDBY ASSIST OF PCT FOR SHOWER, TELEPHONED MD PÉREZ TO MAKE AWARE THAT PT HAS ROOM AT [facility] AND NEED FOR DC ORDER, LEFT MESSAGE , AWAITING CALL BACK
--- NOTE | 2019-07-07 13:36 | NUR ---
REPORT TO YAMILA AT [facility], PT TO TRANSFER TO ROOM 113, AWAITING CALL BACK FROM DR PÉREZ FOR DISCHARGE ORDER
[2019-07-07 15:54] VITALS: BP 150/63
--- NOTE | 2019-07-07 16:20 | NUR ---
PT WHEELED OFF UNIT VIA STRETCHER, TRANSFERRING TO [facility], NO CHANGE IN CONDITION
--- NOTE | 2019-07-11 16:49 | Operative Report ---
DATE OF PROCEDURE: 06/29/2019 SURGEON: Butch Vasquez MD PREOPERATIVE DIAGNOSES: 1. Right renal mass. 2. Right renal cysts. POSTOPERATIVE DIAGNOSES: 1. Right renal mass. 2. Right renal cysts. 3. Intentional pneumothorax. OPERATIONS PERFORMED: 1. Right flank exploration with unroofing of renal cysts (separate procedure performed for the diagnosis of cyst). 2. Right partial nephrectomy (separate procedure performed for right renal mass). 3. Right tube thoracostomy (separate procedure performed for the pneumothorax). MILK PICKUP DRIVER: Ev Vasquez MD ANESTHESIA: General. COMPLICATIONS: None. CLINICAL SUMMARY: Angela Lopez is a 78-year-old woman, who was noted to have renal mass on multiple imaging modalities. This mass was read as suspicious and the patient was brought to the operating room for a partial nephrectomy. She is aware of the risks of bleeding, infection, injury to adjacent structures, incomplete cancer resection, need for additional procedures and elected to proceed. OPERATIVE PROCEDURE IN DETAIL: Informed consent was verified. Angela Lopez was properly identified, taken to the operating room, placed on the operating table in supine position. Anesthesia was uneventfully begun. Diamond catheter was placed. The patient was then carefully gently repositioned in a flank position with all pressure points carefully well padded. Her abdomen, chest and back were prepared and draped in usual sterile fashion. A right flank incision was made at the level of the 12th rib. This incision was carried through the abdominal and chest wall when we encountered the rib dissection. The patient's pleura was adherent to the back side of the 12th rib. The patient's pleura was also extremely thin. It was felt that trying to preserve such thin pleura will result in a pneumothorax and is best to control that situation and open the pleura formally and closed it well. As we finished the rib resection, intentional pleurotomy was made. Once we removed the rib, we isolated the kidney within Gerota's fascia. Once the kidney was fully isolated, we identified the artery and placed a Lula tourniquet in preparation of the partial nephrectomy. Once Gerota's fascia was removed, we identified that the renal mass that was noted on various imaging modalities was really lobulation of the kidney. No real mass was present at that location. We unroofed a renal cyst and fulgurated its internal lining. We did see with this dissection a renal mass that was approximately 0.5 cm in diameter. We clamped the artery, resected this renal mass. We then over sewed the defect. We created with 3-0 chromic suture. We achieved hemostasis. We then approximated the capsule with 2-0 chromic suture and released the artery. 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 Copious irrigation was performed. We verified hemostasis. A Adalberto drain was then placed through a separate stab incision secured to the skin with a nylon suture. Through separate stab wound a tunneled chest tube was then placed in position to tour the apex of the right hemithorax. We then closed the pleurotomy and the thoracic cavity with 2-0 Vicryl suture in running fashion, water and airtight closure was achieved. After copiously irrigating again, the patient's wound was approximated in layers utilizing heavy Vicryl suture in interrupted [id number] fashion. The skin was approximated with skin karely. Sterile dressings were applied. The patient was then uneventfully reversed from anesthesia and taken to recovery room in stable condition. There were no complications at the end of the procedure. She tolerated the procedure well. Sponge, needle and instrument counts were correct x2 at the end of the case. We will proceed with routine postoperative care and of course ongoing urological followup. Butch Vasquez MD [place]/MODL /[id number] cc: Sarah Calvillo MD
== END 2019-07-07 16:14 | DRG 657 ==
LOC: OR 10:43 → PACU V 16:24 → ICU 18:35 → MED/SURG 07-03 14:51
PROVIDERS: ADMIT Internal Medicine; ATTEND Internal Medicine
PROC: 0TB00ZZ Excision of Right Kidney, Open Approach (ICD-10-PCS; 2019-06-29)
PROC: 0B9K00Z Drainage of Right Lung with Drainage Device, Open Approach (ICD-10-PCS; principal; 2019-06-29 13:00)
PROC: 0WP9X0Z Removal of Drainage Device from Right Pleural Cavity, External Approach (ICD-10-PCS; 2019-07-02)
DX: D30.01 Benign neoplasm of right kidney (principal); J93.83 Other pneumothorax; K56.7 Ileus, unspecified; N20.0 Calculus of kidney; K21.9 Gastro-esophageal reflux disease without esophagitis; I10 Essential (primary) hypertension; M19.90 Unspecified osteoarthritis, unspecified site; N28.1 Cyst of kidney, acquired; Z88.2 Allergy status to sulfonamides; Z88.8 Allergy status to other drugs, medicaments and biological substances; Z88.1 Allergy status to other antibiotic agents; Z91.041 Radiographic dye allergy status; E66.9 Obesity, unspecified; Z68.30 Body mass index [BMI] 30.0-30.9, adult; Z86.711 Personal history of pulmonary embolism; Z79.01 Long term (current) use of anticoagulants; L40.9 Psoriasis, unspecified; E87.6 Hypokalemia
CPT/HCPCS: 36415; 71045; 71046; 74018; 80048; 83735; 85025; 86850; 86900; 86920; 87040; 87086; 88300; 88304; 88305; 88331; 88342; 97139; J0360; J1100; J1940; J2001; J2150; J2270; J2405; J3010; J3480; J7040; Q0162

== ENCOUNTER 2024-09-10 17:11 | Inpatient (IN) | payer MEDICARE ==
[~2024-09-10] VITALS: Ht 165.1 cm; Wt 70.3 kg
[2024-09-10] VITALS (13 sets, daily range): BP systolic 169–225; BP diastolic 71–99; PULSE 81–100; RESP 15–21; TEMP 97.4–98.2; O2SAT 94–100
[~2024-09-10 17:11] MED LIST changes: +AZITHROMYCIN250 MG PO
[2024-09-10 17:54] LABS: BASOPHILS % 0.7 % (0.0-1.0); EOSINOPHILS # (AUTO) 0.2 (0.0-0.4); EOSINOPHILS % 3.4 % (0.0-6.0); HEMATOCRIT 33.6 % (34.2-44.1); HEMOGLOBIN 10.9 g/dL (12.0-16.0); LYMPHOCYTES # (AUTO) 1.4 (1.0-3.2); LYMPHOCYTES % 24.4 % (18.0-39.1); MEAN CORPUSCULAR HEMOGLOBIN 28.5 pg (28-32); MEAN CORPUSCULAR HGB CONC 32.4 g/dL (31-35); MEAN CORPUSCULAR VOLUME 87.7 fL (81-99); MONOCYTES # (AUTO) 0.4 (0.2-0.8); NEUTROPHILS # (AUTO) 3.5 (2.1-6.9); NEUTROPHILS % 63.3 % (38.7-80.0); PLATELET COUNT 263 x10e3/uL (140-360); RED BLOOD COUNT 3.83 x10e6/uL (3.6-5.1); RED CELL DISTRIBUTION WIDTH 13.3 % (11.7-14.4); WHITE BLOOD COUNT 5.53 x10e3/uL (4.8-10.8)
[2024-09-10] MEDS: SODIUM CHLORIDE 0.9% 500ML 500 ML IV ONE (17:59)
[2024-09-10] MEDS: HYDRALAZINE HCL 20 MG/ML VIAL IV STA (17:59)
[2024-09-10 18:02] LABS: ALBUMIN 3.2 g/dL (3.5-5.0); ALBUMIN/GLOBULIN RATIO 0.9 (0.8-2.0); ANION GAP 15.6 mmol/L (8-16); BILIRUBIN,TOTAL 0.3 mg/dL (0.2-1.2); CREATININE, SERUM 2.31 mg/dL (0.57-1.11); MAGNESIUM 2.6 MG/DL (1.3-2.1); POTASSIUM 3.6 mmol/L (3.5-5.1); TOTAL PROTEIN 6.7 g/dL (6.5-8.1)
[2024-09-10 18:09] LABS: TROPONIN I 0.025 ng/mL (0-0.300)
[2024-09-10] MEDS: HYDRALAZINE HCL 25 MG TAB PO ONE ×2 (18:18→19:17)
[2024-09-10] MEDS ORDERED: SODIUM CHLORIDE FLUSH 10 ML SYR INJ PRN (19:00)
[2024-09-10] MEDS ORDERED: ONDANSETRON HCL INJ 2MG/ML 2ML 2 MG/ML VIAL IV PRN (19:00)
[2024-09-10] MEDS: NIFEDIPINE CR 30 MG TAB PO ONE (19:17)
[2024-09-10] MEDS: HYDRALAZINE HCL 20 MG/ML VIAL IV PRN (22:24)
[2024-09-11] VITALS (62 sets, daily range): BP systolic 147–190; BP diastolic 63–94; PULSE 74–112; RESP 15–27; TEMP 97.8–98.8; O2SAT 89–98
[2024-09-11] MEDS ORDERED: PROTONIX20 MG PO (03:30)
[2024-09-11] MEDS ORDERED: MEMANTINE HCL5 MG PO (03:40)
[2024-09-11] MEDS ORDERED: CATAPRES-TTS 21 EACH TD (03:40)
[2024-09-11] MEDS ORDERED: NIFEDIPINE ER30 M1 PO (03:40)
[2024-09-11 04:08] LABS: TROPONIN I 0.528 ng/mL (0-0.300)
[2024-09-11 06:50] LABS: WHITE BLOOD COUNT 6.83 x10e3/uL (4.8-10.8)
[2024-09-11 06:51] LABS: BASOPHILS % 0.6 % (0.0-1.0); EOSINOPHILS # (AUTO) 0.1 (0.0-0.4); EOSINOPHILS % 1.9 % (0.0-6.0); HEMATOCRIT 33.2 % (34.2-44.1); LYMPHOCYTES # (AUTO) 0.8 (1.0-3.2); LYMPHOCYTES % 11.7 % (18.0-39.1); MEAN CORPUSCULAR HEMOGLOBIN 29.1 pg (28-32); MEAN CORPUSCULAR HGB CONC 33.1 g/dL (31-35); MEAN CORPUSCULAR VOLUME 87.8 fL (81-99); MONOCYTES # (AUTO) 0.3 (0.2-0.8); NEUTROPHILS # (AUTO) 5.5 (2.1-6.9); NEUTROPHILS % 80.5 % (38.7-80.0); PLATELET COUNT 260 x10e3/uL (140-360); RED BLOOD COUNT 3.78 x10e6/uL (3.6-5.1); RED CELL DISTRIBUTION WIDTH 13.4 % (11.7-14.4)
[2024-09-11 07:36] LABS: ALBUMIN 2.9 g/dL (3.5-5.0); ALBUMIN/GLOBULIN RATIO 0.9 (0.8-2.0); ANION GAP 14.1 mmol/L (8-16); BILIRUBIN,TOTAL 0.3 mg/dL (0.2-1.2); CALCIUM 9.3 mg/dL (8.4-10.2); POTASSIUM 3.1 mmol/L (3.5-5.1); TOTAL PROTEIN 6.3 g/dL (6.5-8.1)
[2024-09-11] MEDS: ASPIRIN 81 MG CHEW TAB PO ONE (09:02)
[2024-09-11] MEDS: HYDRALAZINE HCL 100 MG TABLET PO SCH (09:02)
[2024-09-11] MEDS: NIFEDIPINE CR 30 MG TAB PO SCH (09:03)
[2024-09-11] MEDS: ACETAMINOPHEN 325 MG TAB PO ONE (09:11)
[2024-09-11] MEDS ORDERED: ALBUTEROL SULF 0.083% NEB SOLN 3 ML NEB NEB PRN ×2 (12:30→15:15)
[2024-09-11 12:55] LABS: TROPONIN I 0.391 ng/mL (0-0.300)
[2024-09-11] MEDS: POTASSIUM CHLORIDE 10MEQ EA PO ONE ×2 (15:13→15:14)
[2024-09-11] MEDS: MONTELUKAST SODIUM 10 MG TAB PO SCH (20:07)
[2024-09-11] MEDS: CLONIDINE HCL 0.2 MG/24 HR 1 EA PATCH TD SCH (20:08)
[2024-09-12] VITALS (36 sets, daily range): BP systolic 148–179; BP diastolic 61–153; PULSE 65–88; RESP 12–22; TEMP 97.4–98.9; O2SAT 93–100
[2024-09-12 07:43] LABS: BASOPHILS # (AUTO) 0.1 (0.0-0.1); BASOPHILS % 0.9 % (0.0-1.0); EOSINOPHILS # (AUTO) 0.3 (0.0-0.4); EOSINOPHILS % 4.6 % (0.0-6.0); HEMATOCRIT 31.9 % (34.2-44.1); HEMOGLOBIN 10.4 g/dL (12.0-16.0); LYMPHOCYTES % 17.5 % (18.0-39.1); MEAN CORPUSCULAR HEMOGLOBIN 28.7 pg (28-32); MEAN CORPUSCULAR HGB CONC 32.6 g/dL (31-35); MEAN CORPUSCULAR VOLUME 88.1 fL (81-99); MONOCYTES # (AUTO) 0.5 (0.2-0.8); NEUTROPHILS # (AUTO) 3.7 (2.1-6.9); NEUTROPHILS % 67.6 % (38.7-80.0); PLATELET COUNT 247 x10e3/uL (140-360); RED BLOOD COUNT 3.62 x10e6/uL (3.6-5.1); RED CELL DISTRIBUTION WIDTH 13.5 % (11.7-14.4); WHITE BLOOD COUNT 5.43 x10e3/uL (4.8-10.8)
[2024-09-12 07:50] LABS: ANION GAP 14.3 mmol/L (8-16); CALCIUM 8.9 mg/dL (8.4-10.2); CREATININE, SERUM 2.27 mg/dL (0.57-1.11)
[2024-09-12 08:27] LABS: POTASSIUM 3.3 mmol/L (3.5-5.1)
[2024-09-12] MEDS: PANTOPRAZOLE SOD 40 MG TABEC PO SCH (10:07)
[2024-09-12] MEDS: RIVAROXABAN 15 MG TABLET PO SCH (12:24)
[2024-09-12] MEDS: METOPROLOL SUCCINATE 25 MG TAB XL PO SCH (16:44)
[2024-09-12] MEDS: DOCUSATE SODIUM 100 MG CAP PO SCH (20:32)
[2024-09-12] MEDS: POLYETHYLENE GLYCOL 3350 17 GM PACK PO SCH (20:32)
[2024-09-13] VITALS (20 sets, daily range): BP systolic 123–174; BP diastolic 57–119; PULSE 70–98; RESP 13–24; TEMP 98–98.6; O2SAT 94–99
[2024-09-14] VITALS (19 sets, daily range): BP systolic 154–189; BP diastolic 58–95; PULSE 78–95; RESP 6–23; TEMP 97.7–98.5; O2SAT 90–99
[2024-09-15] VITALS (28 sets, daily range): BP systolic 117–182; BP diastolic 56–84; PULSE 64–100; RESP 13–45; TEMP 97.6–98.2; O2SAT 92–100
[2024-09-15 07:03] LABS: BASOPHILS # (AUTO) 0.1 (0.0-0.1); BASOPHILS % 0.9 % (0.0-1.0); EOSINOPHILS # (AUTO) 0.2 (0.0-0.4); EOSINOPHILS % 3.8 % (0.0-6.0); HEMATOCRIT 32.3 % (34.2-44.1); HEMOGLOBIN 10.4 g/dL (12.0-16.0); LYMPHOCYTES # (AUTO) 1.2 (1.0-3.2); LYMPHOCYTES % 19.2 % (18.0-39.1); MEAN CORPUSCULAR HEMOGLOBIN 28.6 pg (28-32); MEAN CORPUSCULAR HGB CONC 32.2 g/dL (31-35); MEAN CORPUSCULAR VOLUME 88.7 fL (81-99); MONOCYTES # (AUTO) 0.5 (0.2-0.8); NEUTROPHILS # (AUTO) 4.3 (2.1-6.9); NEUTROPHILS % 67.8 % (38.7-80.0); PLATELET COUNT 231 x10e3/uL (140-360); RED BLOOD COUNT 3.64 x10e6/uL (3.6-5.1); RED CELL DISTRIBUTION WIDTH 13.5 % (11.7-14.4); WHITE BLOOD COUNT 6.37 x10e3/uL (4.8-10.8)
[2024-09-15 07:25] LABS: ALBUMIN 2.9 g/dL (3.5-5.0); ALBUMIN/GLOBULIN RATIO 0.9 (0.8-2.0); ANION GAP 15.5 mmol/L (8-16); BILIRUBIN,TOTAL 0.3 mg/dL (0.2-1.2); CALCIUM 8.9 mg/dL (8.4-10.2); CREATININE, SERUM 2.16 mg/dL (0.57-1.11); POTASSIUM 3.5 mmol/L (3.5-5.1); TOTAL PROTEIN 6.2 g/dL (6.5-8.1)
[2024-09-15] MEDS: CARVEDILOL 12.5 MG TAB PO SCH (12:23)
[2024-09-16] VITALS (23 sets, daily range): BP systolic 124–169; BP diastolic 55–89; PULSE 61–80; RESP 14–28; TEMP 97.7–98.3; O2SAT 90–100
[2024-09-16 06:59] LABS: BASOPHILS % 0.8 % (0.0-1.0); EOSINOPHILS # (AUTO) 0.2 (0.0-0.4); EOSINOPHILS % 5.1 % (0.0-6.0); HEMOGLOBIN 9.7 g/dL (12.0-16.0); LYMPHOCYTES # (AUTO) 1.2 (1.0-3.2); LYMPHOCYTES % 26.1 % (18.0-39.1); MEAN CORPUSCULAR HEMOGLOBIN 28.7 pg (28-32); MEAN CORPUSCULAR HGB CONC 31.3 g/dL (31-35); MEAN CORPUSCULAR VOLUME 91.7 fL (81-99); MONOCYTES # (AUTO) 0.4 (0.2-0.8); MONOCYTES % 9.1 % (4.4-11.3); NEUTROPHILS # (AUTO) 2.8 (2.1-6.9); NEUTROPHILS % 58.7 % (38.7-80.0); PLATELET COUNT 229 x10e3/uL (140-360); RED BLOOD COUNT 3.38 x10e6/uL (3.6-5.1); RED CELL DISTRIBUTION WIDTH 13.5 % (11.7-14.4); WHITE BLOOD COUNT 4.72 x10e3/uL (4.8-10.8)
[2024-09-16 07:25] LABS: ANION GAP 15.6 mmol/L (8-16); CALCIUM 8.7 mg/dL (8.4-10.2); CREATININE, SERUM 2.28 mg/dL (0.57-1.11); POTASSIUM 3.6 mmol/L (3.5-5.1)
[2024-09-17] VITALS (13 sets, daily range): BP systolic 132–189; BP diastolic 7–77; PULSE 59–74; RESP 12–21; TEMP 97.9–98.5; O2SAT 94–99
[2024-09-17 07:20] LABS: BASOPHILS # (AUTO) 0.1 (0.0-0.1); BASOPHILS % 1.3 % (0.0-1.0); EOSINOPHILS # (AUTO) 0.3 (0.0-0.4); EOSINOPHILS % 5.2 % (0.0-6.0); HEMATOCRIT 29.2 % (34.2-44.1); HEMOGLOBIN 9.1 g/dL (12.0-16.0); LYMPHOCYTES # (AUTO) 1.2 (1.0-3.2); LYMPHOCYTES % 24.8 % (18.0-39.1); MEAN CORPUSCULAR HEMOGLOBIN 28.7 pg (28-32); MEAN CORPUSCULAR HGB CONC 31.2 g/dL (31-35); MEAN CORPUSCULAR VOLUME 92.1 fL (81-99); MONOCYTES # (AUTO) 0.4 (0.2-0.8); MONOCYTES % 8.4 % (4.4-11.3); NEUTROPHILS # (AUTO) 2.9 (2.1-6.9); NEUTROPHILS % 60.1 % (38.7-80.0); PLATELET COUNT 224 x10e3/uL (140-360); RED BLOOD COUNT 3.17 x10e6/uL (3.6-5.1); RED CELL DISTRIBUTION WIDTH 13.3 % (11.7-14.4); WHITE BLOOD COUNT 4.79 x10e3/uL (4.8-10.8)
[2024-09-17 07:36] LABS: ANION GAP 12.4 mmol/L (8-16); CALCIUM 8.6 mg/dL (8.4-10.2); CREATININE, SERUM 2.31 mg/dL (0.57-1.11)
[2024-09-17 07:37] LABS: POTASSIUM 3.4 mmol/L (3.5-5.1)
[2024-09-17 08:02] LABS: THYROID STIMULATING HORMONE 1.797 uIU/mL (0.350-4.940)
[2024-09-17] MEDS: DOXAZOSIN MESYLATE 2 MG TAB PO SCH (11:47)
[2024-09-17] MEDS: METOCLOPRAMIDE HCL 10 MG TAB PO SCH (13:11)
[2024-09-18] VITALS: BP 144/67; PULSE 70; RESP 16; TEMP 97.9; O2SAT 98
[2024-09-18 04:50] LABS: BASOPHILS # (AUTO) 0.1 (0.0-0.1); EOSINOPHILS # (AUTO) 0.2 (0.0-0.4); EOSINOPHILS % 3.7 % (0.0-6.0); HEMATOCRIT 29.4 % (34.2-44.1); HEMOGLOBIN 9.4 g/dL (12.0-16.0); LYMPHOCYTES # (AUTO) 1.3 (1.0-3.2); LYMPHOCYTES % 27.8 % (18.0-39.1); MEAN CORPUSCULAR HEMOGLOBIN 28.7 pg (28-32); MEAN CORPUSCULAR VOLUME 89.9 fL (81-99); MONOCYTES # (AUTO) 0.3 (0.2-0.8); NEUTROPHILS % 61.3 % (38.7-80.0); PLATELET COUNT 231 x10e3/uL (140-360); RED BLOOD COUNT 3.27 x10e6/uL (3.6-5.1); RED CELL DISTRIBUTION WIDTH 13.2 % (11.7-14.4); WHITE BLOOD COUNT 4.82 x10e3/uL (4.8-10.8)
[2024-09-18 05:15] LABS: ANION GAP 14.4 mmol/L (8-16); CREATININE, SERUM 2.3 mg/dL (0.57-1.11)
[2024-09-18 05:21] LABS: POTASSIUM 3.4 mmol/L (3.5-5.1)
[2024-09-18 05:48] VITALS: BP 156/64; PULSE 72; RESP 20; TEMP 97.7; O2SAT 97
[2024-09-18 08:17] VITALS: PULSE 80; RESP 16; O2SAT 96
[2024-09-18 10:25] VITALS: BP 139/59; PULSE 76; RESP 18; TEMP 97.9; O2SAT 99
[2024-09-18 10:40] VITALS: BP 139/59; PULSE 76; RESP 18; TEMP 97.9; O2SAT 99
[2024-09-18] MEDS ORDERED: COREG12.5 MG PO (16:15)
[2024-09-18] MEDS ORDERED: NIFEDIPINE ER30 M1 PO (16:15)
[2024-09-18] MEDS ORDERED: HYDRALAZINE HC100 MG PO (16:15)
[2024-09-18] MEDS ORDERED: CARDURA2 MG PO (16:15)
[2024-09-18 16:57] VITALS: BP 155/71; PULSE 66; RESP 20; TEMP 97.1; O2SAT 100
[2024-09-28 07:34] LABS: ALDOSTERONE 10.5; RENIN, ACTIVITY PLASMA 2.93
== END 2024-09-18 18:32 | disposition home or self-care (01) | DRG 281 ==
LOC: ER 17:28 → ERHOLD 19:04 → ICU 21:15 → MED/SURG 09-17 07:39
PROVIDERS: ADMIT Internal Medicine; ATTEND Internal Medicine
DX: I16.1 Hypertensive emergency (principal); N18.4 Chronic kidney disease, stage 4 (severe); I21.A1 Myocardial infarction type 2; Z99.81 Dependence on supplemental oxygen; I12.9 Hypertensive chronic kidney disease with stage 1 through stage 4 chronic kidney disease, or unspecified chronic kidney disease; E87.6 Hypokalemia; J45.909 Unspecified asthma, uncomplicated; K21.9 Gastro-esophageal reflux disease without esophagitis; M54.50 Low back pain, unspecified; R01.1 Cardiac murmur, unspecified; R53.81 Other malaise; E78.5 Hyperlipidemia, unspecified; L40.50 Arthropathic psoriasis, unspecified; Z91.199 Patient's noncompliance with other medical treatment and regimen due to unspecified reason; Z79.01 Long term (current) use of anticoagulants; Z86.711 Personal history of pulmonary embolism; Z86.73 Personal history of transient ischemic attack (TIA), and cerebral infarction without residual deficits; Z90.49 Acquired absence of other specified parts of digestive tract; Z90.710 Acquired absence of both cervix and uterus; Z90.721 Acquired absence of ovaries, unilateral; Z91.041 Radiographic dye allergy status; Z88.1 Allergy status to other antibiotic agents; Z88.2 Allergy status to sulfonamides; Z88.8 Allergy status to other drugs, medicaments and biological substances; Z91.013 Allergy to seafood
CPT/HCPCS: 36415; 71045; 76770; 80048; 80053; 82088; 82550; 83735; 84244; 84443; 84484; 85025; 93005; 93306; 93976; 94799; 99252; 99285; J0360; J7040

== ENCOUNTER 2025-05-15 19:47 | Emergency (ER) | payer MEDICARE ==
[~2025-05-15] VITALS: Ht 165.1 cm; Wt 67.6 kg
[~2025-05-15 19:47] MED LIST changes: +CARDURA2 MG PO; +CATAPRES-TTS 21 EACH TD; +COREG12.5 MG PO; +HYDRALAZINE HC100 MG PO; +MEMANTINE HCL5 MG PO; +NIFEDIPINE ER30 M1 PO; +PROTONIX20 MG PO
[2025-05-15 21:14] LABS: BASOPHILS % 0.5 % (0.0-1.0); EOSINOPHILS % 0.5 % (0.0-6.0); LYMPHOCYTES % 9.6 % (18.0-39.1); MONOCYTES % 2.6 % (4.4-11.3); NEUTROPHILS % 86.3 % (38.7-80.0); RED CELL DISTRIBUTION WIDTH 15.0 % (11.7-14.4)
[2025-05-15 21:28] LABS: EST GLOMERULAR FILTRATION RATE 14.0 ML/MIN (>=60)
[2025-05-15 21:42] LABS: LEUKOCYTE ESTERASE ,URINE NEGATIVE (NEGATIVE); PROTEIN,URINE DIPSTICK >=300 (NEGATIVE); URINE UROBILINOGEN 0.2 mg/dL (0.2 - 1)
[2025-05-15 21:47] LABS: EPITHELIAL CELLS,URINE FEW /LPF; WBC,URINE (MAN) 21-50 /HPF (0-5)
[2025-05-15] MEDS: ONDANSETRON HCL INJ 2MG/ML 2ML 2 MG/ML VIAL IV STA (22:26)
[2025-05-15] MEDS: Morphine 4mg INJECTION 4 MG/ML INJ IV ONE (22:27)
[2025-05-15] MEDS: SODIUM CHLORIDE 0.9% 1000ML 1,000 ML IV ONE (22:28)
[2025-05-15] MEDS ORDERED: LEVOFLOXACIN 750MG/D5W 150ML 150 ML IV SCH (23:15)
[2025-05-16] MEDS: LEVOFLOXACIN 750MG/D5W 150ML 150 ML IV STA (00:17)
[2025-05-16] MEDS ORDERED: SODIUM CHLORIDE 0.9% 250ML 250 ML IV ONE (00:45)
[2025-05-16 02:49] VITALS: PULSE 68; RESP 18; TEMP 98.4; O2SAT 100
== END 2025-05-16 03:12 | disposition short-term general hospital (02) ==
LOC: ER 20:47
DX: R10.32 Left lower quadrant pain (principal); S37.012A Minor contusion of left kidney, initial encounter; D62 Acute posthemorrhagic anemia; N39.0 Urinary tract infection, site not specified; I10 Essential (primary) hypertension; E78.5 Hyperlipidemia, unspecified; J45.909 Unspecified asthma, uncomplicated; K21.9 Gastro-esophageal reflux disease without esophagitis; Z86.73 Personal history of transient ischemic attack (TIA), and cerebral infarction without residual deficits; Z86.718 Personal history of other venous thrombosis and embolism
CPT/HCPCS: 36415; 74176; 80053; 81001; 83690; 85014; 85018; 85025; 86850; 86900; 86920; 87086; 87186; 99284; J2270; J2405; J7030; J7050; P9016